=== PATIENT | male | born 1960 | race Caucasian/White ===

== ENCOUNTER 2019-06-06 04:14 | Inpatient (IN) | payer BC ==
[2019-06-06] MEDS ORDERED: Sodium Chloride 0.9% 1,000 ML IV ONE (04:36)
[2019-06-06] MEDS ORDERED: Sodium Chloride 0.9% 2.5 ML Syringe FLUSH PRN ×2 (04:36→07:40)
[2019-06-06] MEDS ORDERED: Sodium Chloride 0.9% 10 ML Syringe FLUSH PRN ×2 (04:36→07:40)
[2019-06-06] MEDS ORDERED: Morphine 2 MG/ML Syringe IVPUSH ONE (04:36)
[2019-06-06] MEDS ORDERED: Pantoprazole 80 MG in Sodium Chloride 0.9% 20 ML IVPUSH ONE (04:36)
[2019-06-06] MEDS ORDERED: Ondansetron 4 MG/2 ML SDV IVPUSH ONE (04:37)
--- NOTE | 2019-06-06 04:40 | EDM.PDOC ---
ED HPI GENERAL MEDICAL PROBLEM - General Chief Complaint: Abdominal Pain Stated Complaint: ABD PAIN Time Seen by Provider: 06/06/19 04:31 - History of Present Illness INITIAL COMMENTS - FREE TEXT/NARRATIVE: HISTORY AND PHYSICAL: History of present illness: The patient is a 58-year-old male with no cardiac or GI history who presents with onset of epigastric and upper abdominal pain at approximately 11 PM, almost 6 hours ago. He says that he has had episodes of the same pain in the past but never this severe and he has not sought treatment from a provider with it. He says that he intermittently uses meds for heartburn but he does not regularly have heartburn and he has no history of food intolerance. He has had no fever chills upper respiratory symptoms shortness of breath or chest pain and he has not had black or bloody stools and in fact had a bowel movement several hours ago that was normal in character and color for him. He has no urinary symptoms or flank pain. He says the pain originates in his epigastrium and then travels to either side and then also goes to his back. He describes it as a burning pain and he did try a few [id number] antacids a few hours ago and it did not help so he came here for treatment. He says he is not lightheaded or dizzy and has no lower abdominal pain. Review of systems: As per history of present illness and below otherwise all systems reviewed and negative. Past medical history: As per history of present illness and as reviewed below otherwise noncontributory. Surgical history: As per history of present illness and as reviewed below otherwise noncontributory. Social history: No reported history of drug or alcohol abuse. Family history: As per history of present illness and as reviewed below otherwise noncontributory. Physical exam: General: Well-developed well-nourished man who is nontoxic and vital signs are noted by me. He looks uncomfortable in the room HEENT: Atraumatic, normocephalic, pupils reactive, negative for conjunctival pallor or scleral icterus, mucous membranes moist, throat clear, neck supple, nontender, trachea midline. Lungs: Clear to auscultation, breath sounds equal bilaterally, chest nontender. Heart: S1S2, regular, negative for clicks, rubs, or JVD. Abdomen: Soft, nondistended, typically tender in the epigastrium and slightly to the right in the right upper quadrant and minimally in the left upper quadrant with some voluntary guarding but no involuntary guarding or rebound and there is no lower abdominal tenderness. Bowel sounds are hypoactive and there is no tympany on percussion.. Negative for masses or hepatosplenomegaly. Negative for costovertebral tenderness. Pelvis: Stable nontender. Genitourinary: Deferred. Rectal: Deferred. Extremities: Atraumatic, no edema. Neurovascular unremarkable. Neuro: Awake, alert, oriented. Cranial nerves II through XII unremarkable. Cerebellum unremarkable. Motor and sensory unremarkable throughout. Exam nonfocal. Diagnostics: EKG CBC CMP amylase lipase lactic acid CT scan of the abdomen pelvis Therapeutics: IV fluids Zofran morphine Protonix Dilaudid Zosyn 0611: Was discussed with Dr. Veliz and she is aware of the CT scan findings and the elevated WBC count. She would like me to keep the patient n.p.o. and give a dose of Zosyn and admit the patient to the floor and she will see the patient and evaluate him further for further care plan. The patient is aware of his CT scan findings and the need for admission and is agreeable Impression: Acute cholecystitis Definitive disposition and diagnosis as appropriate pending reevaluation and review of above. bilateral upper quadrant Pain Score (Numeric/FACES): 10 - Related Data Allergies Allergy/AdvReac Type Severity Reaction Status Date / Time No Known Allergies Allergy Verified 06/06/19 04:23 Home Meds: Home Meds . [No Known Home Meds] 06/06/19 [History] Past Medical History - Past Health History Medical/Surgical History: Denies Medical/Surgical History Cardiovascular History: Reports: None Respiratory History: Reports: None Gastrointestinal History: Reports: None Genitourinary History: Reports: None Musculoskeletal History: Reports: None Neurological History: Reports: None Psychiatric History: Reports: None Endocrine/Metabolic History: Reports: None Hematologic History: Reports: None Oncologic (Cancer) History: Reports: None Dermatologic History: Reports: None - Infectious Disease History Infectious Disease History: Reports: Chicken Pox Social & Family History - Family History Family Medical History: Noncontributory - Tobacco Use Smoking Status *Q: Never Smoker - Recreational Drug Use Recreational Drug Use: No ED ROS GENERAL - Review of Systems Review Of Systems: Comprehensive ROS is negative, except as noted in HPI. ED EXAM, GENERAL - Physical Exam Exam: See Below (See dictation) Course - Vital Signs Last Recorded V/S: Last Vital Signs Temp 35.9 C 06/06/19 04:24 Pulse 67 06/06/19 05:59 Resp 18 06/06/19 05:59 BP 165/102 H 06/06/19 05:59 Pulse Ox 99 06/06/19 05:59 - Orders/Labs/Meds Orders: Active Orders 24 hr Category Date Time Status Patient Status [ADT] Stat ADT 06/06/19 06:16 Ordered EKG Documentation Completion [RC] STAT Care 06/06/19 04:35 Active UA W/MICROSCOPIC [URIN] Stat Lab 06/06/19 05:59 Ordered Lactated Ringers @ 150 MLS/HR(1,000ml) Med 06/06/19 06:30 Ordered Lactated Ringers [Ringers, Lactated] 1,000 ml IV ASDIRECTED Piperacillin/Tazobactam [Piperacil-Tazobact] 4.5 gm Med 06/06/19 06:16 Ordered Sodium Chloride 0.9% [Normal Saline] 100 ml IV ONETIME Sodium Chloride 0.9% [Saline Flush] Med 06/06/19 04:36 Active 10 ml FLUSH ASDIRECTED PRN Sodium Chloride 0.9% [Saline Flush] Med 06/06/19 04:36 Active 2.5 ml FLUSH ASDIRECTED PRN Saline Lock Insert [OM.PC] Stat Oth 06/06/19 04:35 Ordered Medication Orders Sodium Chloride (Saline Flush) 10 ml FLUSH ASDIRECTED PRN PRN Reason: Keep Vein Open Sodium Chloride (Saline Flush) 2.5 ml FLUSH ASDIRECTED PRN PRN Reason: Keep Vein Open Labs: Laboratory Tests 06/06/19 06/06/19 06/06/19 Range/Units 04:30 04:30 04:30 WBC 14.85 H (4.0-11.0) K/uL RBC 5.23 (4.50-5.90) M/uL Hgb 15.2 (13.0-17.0) g/dL Hct 45.1 (38.0-50.0) % MCV 86.2 (80.0-98.0) fL MCH 29.1 (27.0-32.0) pg MCHC 33.7 (31.0-37.0) g/dL RDW Std Deviation 42.2 (28.0-62.0) fl RDW Coeff of Abhishek 14 (11.0-15.0) % Plt Count 343 (150-400) K/uL MPV 9.80 (7.40-12.00) fL Neut % (Auto) 81.3 H (48.0-80.0) % Lymph % (Auto) 7.7 L (16.0-40.0) % [place] % (Auto) 8.7 (0.0-15.0) % Eos % (Auto) 2.0 (0.0-7.0) % Baso % (Auto) 0.3 (0.0-1.5) % Neut # (Auto) 12.1 H (1.4-5.7) K/uL Lymph # (Auto) 1.1 (0.6-2.4) K/uL [place] # (Auto) 1.3 H (0.0-0.8) K/uL Eos # (Auto) 0.3 (0.0-0.7) K/uL Baso # (Auto) 0.0 (0.0-0.1) K/uL Nucleated RBC % 0.0 /100WBC Nucleated RBCs # 0 K/uL Lactate 1.1 (0.20-2.00) mmol/L Sodium 137 (136-148) mmol/L Potassium 3.6 (3.5-5.1) mmol/L Chloride 100 (98-107) mmol/L Carbon Dioxide 28.6 (21.0-32.0) mmol/L BUN 10 (7.0-18.0) mg/dL Creatinine 0.9 (0.8-1.3) mg/dL Est Cr Clr Drug Dosing 102.75 mL/min Estimated GFR (MDRD) > 60.0 ml/min Glucose 120 H (74-106) mg/dL Calcium 9.4 (8.5-10.1) mg/dL Total Bilirubin 0.6 (0.2-1.0) mg/dL AST 21 (15-37) IU/L ALT 34 (14-63) IU/L Alkaline Phosphatase 124 H (46-116) U/L Total Protein 7.5 (6.4-8.2) g/dL Albumin 3.8 (3.4-5.0) g/dL Globulin 3.7 (2.6-4.0) g/dL Albumin/Globulin Ratio 1.0 (0.9-1.6) Amylase 44 (25-115) U/L Lipase 175 (73-393) U/L Meds: Medications Generic Name Dose Route Start Last Admin Trade Name Freq PRN Reason Stop Dose Admin Sodium Chloride 10 ml 06/06/19 04:36 Saline Flush FLUSH ASDIRECTED PRN Keep Vein Open Sodium Chloride 2.5 ml 06/06/19 04:36 Saline Flush FLUSH ASDIRECTED PRN Keep Vein Open Discontinued Medications Generic Name Dose Route Start Last Admin Trade Name Freq PRN Reason Stop Dose Admin Hydromorphone HCl 1 mg 06/06/19 06:09 06/06/19 06:16 Dilaudid IVPUSH 06/06/19 06:10 1 mg ONETIME ONE Administration Pantoprazole Sodium 80 mg/ 20 mls @ 420 mls/hr 06/06/19 04:36 06/06/19 04:52 Sodium Chloride IVPUSH 06/06/19 04:38 420 mls/hr ONETIME ONE Administration Sodium Chloride 1,000 mls @ 999 mls/hr 06/06/19 04:36 06/06/19 04:45 Normal Saline IV 06/06/19 05:36 999 mls/hr STAT ONE Administration Iopamidol 100 ml 06/06/19 05:32 06/06/19 05:33 Isovue Multipack-370 (76%) IVPUSH 06/06/19 05:33 100 ml ONETIME ONE Administration Morphine Sulfate 4 mg 06/06/19 04:36 06/06/19 04:51 Morphine IVPUSH 06/06/19 04:37 4 mg ONETIME ONE Administration Ondansetron HCl 4 mg 06/06/19 04:37 06/06/19 04:52 Zofran IVPUSH 06/06/19 04:38 4 mg ONETIME ONE Administration Departure - Departure Time of Disposition: 06:18 Disposition: Refer to Observation Condition: Good Clinical Impression: Cholecystitis - Discharge Information Referrals: PCP,None [Primary Care Provider] - Forms: ED Department Discharge Sepsis Event Note - Evaluation Sepsis Screening Result: No Definite Risk - Focused Exam Vital Signs: Vital Signs Temp Pulse Resp BP Pulse Ox 06/06/19 05:59 67 18 165/102 H 99 06/06/19 04:24 35.9 C 83 18 149/104 H 96 Date Exam was Performed: 06/06/19 Time Exam was Performed: 06:17 - My Orders Last 24 Hours: My Active Orders 06/06/19 04:35 EKG Documentation Completion [RC] STAT Saline Lock Insert [OM.PC] Stat 06/06/19 04:36 Sodium Chloride 0.9% [Saline Flush] 10 ml FLUSH ASDIRECTED PRN Sodium Chloride 0.9% [Saline Flush] 2.5 ml FLUSH ASDIRECTED PRN 06/06/19 05:59 UA W/MICROSCOPIC [URIN] Stat 06/06/19 06:16 Patient Status [ADT] Stat Piperacillin/Tazobactam [Piperacil-Tazobact] 4.5 gm Sodium Chloride 0.9% [ Normal Saline] 100 ml IV ONETIME 06/06/19 06:30 Lactated Ringers @ 150 MLS/HR(1,000ml) Lactated Ringers [Ringers, Lactated] 1, 000 ml IV ASDIRECTED - Assessment/Plan Last 24 Hours: My Active Orders 06/06/19 04:35 EKG Documentation Completion [RC] STAT Saline Lock Insert [OM.PC] Stat 06/06/19 04:36 Sodium Chloride 0.9% [Saline Flush] 10 ml FLUSH ASDIRECTED PRN Sodium Chloride 0.9% [Saline Flush] 2.5 ml FLUSH ASDIRECTED PRN 06/06/19 05:59 UA W/MICROSCOPIC [URIN] Stat 06/06/19 06:16 Patient Status [ADT] Stat Piperacillin/Tazobactam [Piperacil-Tazobact] 4.5 gm Sodium Chloride 0.9% [ Normal Saline] 100 ml IV ONETIME 06/06/19 06:30 Lactated Ringers @ 150 MLS/HR(1,000ml) Lactated Ringers [Ringers, Lactated] 1, 000 ml IV ASDIRECTED
[2019-06-06 05:12] LABS: BLOOD UREA NITROGEN,BUN 10 mg/dL (7.0-18.0); CARBON DIOXIDE,CO2 28.6 mmol/L (21.0-32.0); CHLORIDE,CL 100 mmol/L (98-107); GLUCOSE RANDOM 120 mg/dL (74-106); LIPASE 175 U/L (73-393); POTASSIUM,K 3.6 mmol/L (3.5-5.1); SODIUM,NA 137 mmol/L (136-148)
[2019-06-06] MEDS ORDERED: Iopamidol 755 MG/ML 200 ML Multipack Bottle IVPUSH ONE (05:32)
[2019-06-06] MEDS ORDERED: HYDROmorphone 1 MG/ML Syringe IVPUSH ONE (06:09)
--- NOTE | 2019-06-06 06:09 | CT ---
INDICATION: Abdominal pain. TECHNIQUE: CT abdomen and pelvis acquired with 100 cc Isovue 370 IV contrast. Coronal and sagittal reconstructions. COMPARISON: None. FINDINGS: The gallbladder is filled with hyperdense material likely representing sludge, as well as a few stones. There is inflammatory fat stranding and fluid about the gallbladder, worrisome for acute cholecystitis. The liver, spleen, pancreas, and adrenal glands are negative. Small low-attenuation lesions in the right kidney are too small to characterize but most likely represent benign cysts. Symmetric nephrograms. No hydronephrosis. No obstructing urinary calculi. The bladder and prostate are unremarkable. Negative appendix. No intraperitoneal free air. Aortic vascular calcifications. Hepatic and portal veins are patent. No lymphadenopathy. Degenerative changes of the spine. Retrolisthesis of L5 on S1. Mild left basilar atelectasis. The lung bases are otherwise clear. IMPRESSION: Findings suspicious for acute cholecystitis. This could be confirmed with right upper quadrant ultrasound. Please note that all CT scans at this facility use dose modulation, iterative reconstruction, and/or weight-based dosing when appropriate to reduce radiation dose to as low as reasonably achievable. Dictated by Fide Casillas MD @ Jun 06 2019 6:00AM Signed by Dr. Fide Casillas @ Jun 06 2019 6:07AM
[2019-06-06] MEDS ORDERED: Piperacillin/Tazobactam 4.5 GM in Sodium Chloride 0.9% 100 ML IV ONE (06:16)
[2019-06-06] MEDS: Lactated Ringers 1,000 ML IV SCH ×5 (06:42→23:45)
[2019-06-06] MEDS ORDERED: Ondansetron 4 MG/2 ML SDV IVPUSH PRN ×2 (07:40→11:25)
[2019-06-06] MEDS ORDERED: diphenhydrAMINE 50 MG/ML SDV IVPUSH PRN ×2 (07:40→11:25)
[2019-06-06] MEDS ORDERED: Promethazine 25 MG/ML SDV IM PRN (07:40)
[2019-06-06] MEDS ORDERED: Acetaminophen/oxyCODONE 325-5 MG Tab PO PRN (07:40)
[2019-06-06] MEDS ORDERED: Sodium Chloride 0.9% 10 ML SDV IV PRN (07:40)
[2019-06-06] MEDS: HYDROmorphone 1 MG/ML Syringe IVPUSH PRN ×2 (08:18→09:34)
[2019-06-06] MEDS: Omeprazole 20 MG Cap.CR PO SCH (08:20)
--- NOTE | 2019-06-06 08:58 | PCM.HP.2 ---
H&P History of Present Illness - General Date of Service: 06/06/19 Admit Problem/Dx: Admission Diagnosis/Problem Admission Diagnosis/Problem Acute cholecystitis Source of Information: Patient History Limitations: Reports: No Limitations - History of Present Illness Initial Comments - Free Text/Narative: Patient is a 58-year-old male who presents with 12 hours of right upper quadrant abdominal pain. He states that he has had several episodes of similar pain in the past but it is never been this severe. He felt nauseated but did not have vomiting. The pain did not subside so he presented to the emergency room. He has intermittent heartburn and so he took some antacids but this did not relieve his pain. He had a colonoscopy last year and states that he had a couple polyps removed but is been doing well otherwise. He does not have a primary care physician. He is hypertensive on arrival to the emergency room. He has a white count of 14,000 with a left shift. His alkaline phosphatase is elevated but the remainder of his liver function tests and bilirubin are normal. He was given IV pain meds with little to no relief in the emergency room. CT scan revealed a thickened gallbladder wall with pericholecystic fluid and sludge consistent with acute cholecystitis. Right upper quadrant ultrasound revealed thickened gallbladder wall, amparo-cholecystic fluid and multiple gallstones within the gallbladder. bilateral upper quadrant Pain Score (Numeric/FACES): 10 - Related Data Allergies/Adverse Reactions: Allergies Allergy/AdvReac Type Severity Reaction Status Date / Time No Known Allergies Allergy Verified 06/06/19 06:54 Home Medications: Home Meds . [No Known Home Meds] 06/06/19 [History] Past Medical History - Past Health History Medical/Surgical History: Denies Medical/Surgical History Cardiovascular History: Reports: Hypertension Respiratory History: Reports: None Gastrointestinal History: Reports: None Genitourinary History: Reports: None Musculoskeletal History: Reports: None Neurological History: Reports: None Psychiatric History: Reports: None Endocrine/Metabolic History: Reports: None Hematologic History: Reports: None Oncologic (Cancer) History: Reports: None Dermatologic History: Reports: None - Infectious Disease History Infectious Disease History: Reports: Chicken Pox Social & Family History - Family History Family Medical History: Noncontributory - Tobacco Use Smoking Status *Q: Never Smoker Second Hand Smoke Exposure: No - Caffeine Use Caffeine Use: Reports: Soda - Recreational Drug Use Recreational Drug Use: No H&P Review of Systems - Review of Systems: Review Of Systems: Comprehensive ROS is negative, except as noted in HPI. General: Reports: No Symptoms HEENT: Reports: No Symptoms Pulmonary: Reports: No Symptoms Cardiovascular: Reports: No Symptoms Gastrointestinal: Reports: Abdominal Pain, Decreased Appetite, Nausea Musculoskeletal: Reports: No Symptoms Skin: Reports: No Symptoms Psychiatric: Reports: No Symptoms Exam - Exam Exam: See Below - Vital Signs Vital Signs: Last Vital Signs Temp 36.4 C 06/06/19 06:59 Pulse 59 L 06/06/19 06:59 Resp 18 06/06/19 06:59 BP 157/87 H 06/06/19 06:59 Pulse Ox 100 06/06/19 06:59 Weight: 89.8 kg - Exam General: Alert, Oriented HEENT: Conjunctiva Clear, Mucosa Moist & [place], Posterior Pharynx Clear Neck: Supple, Trachea Midline Lungs: Clear to Auscultation, Normal Respiratory Effort Cardiovascular: Regular Rate, Regular Rhythm GI/Abdominal Exam: Soft, Other (Positive high's sign. Tender mass in RUQ which may be patient's gallbladder. ) - Patient Data Lab Results Last 24 hrs: Laboratory Results - last 24 hr 06/06/19 06/06/19 06/06/19 Range/Units 04:30 04:30 04:30 WBC 14.85 H (4.0-11.0) K/uL RBC 5.23 (4.50-5.90) M/uL Hgb 15.2 (13.0-17.0) g/dL Hct 45.1 (38.0-50.0) % MCV 86.2 (80.0-98.0) fL MCH 29.1 (27.0-32.0) pg MCHC 33.7 (31.0-37.0) g/dL RDW Std Deviation 42.2 (28.0-62.0) fl RDW Coeff of Abhishek 14 (11.0-15.0) % Plt Count 343 (150-400) K/uL MPV 9.80 (7.40-12.00) fL Neut % (Auto) 81.3 H (48.0-80.0) % Lymph % (Auto) 7.7 L (16.0-40.0) % [place] % (Auto) 8.7 (0.0-15.0) % Eos % (Auto) 2.0 (0.0-7.0) % Baso % (Auto) 0.3 (0.0-1.5) % Neut # (Auto) 12.1 H (1.4-5.7) K/uL Lymph # (Auto) 1.1 (0.6-2.4) K/uL [place] # (Auto) 1.3 H (0.0-0.8) K/uL Eos # (Auto) 0.3 (0.0-0.7) K/uL Baso # (Auto) 0.0 (0.0-0.1) K/uL Nucleated RBC % 0.0 /100WBC Nucleated RBCs # 0 K/uL Lactate 1.1 (0.20-2.00) mmol/L Sodium 137 (136-148) mmol/L Potassium 3.6 (3.5-5.1) mmol/L Chloride 100 (98-107) mmol/L Carbon Dioxide 28.6 (21.0-32.0) mmol/L BUN 10 (7.0-18.0) mg/dL Creatinine 0.9 (0.8-1.3) mg/dL Est Cr Clr Drug Dosing 102.75 mL/min Estimated GFR (MDRD) > 60.0 ml/min Glucose 120 H (74-106) mg/dL Calcium 9.4 (8.5-10.1) mg/dL Total Bilirubin 0.6 (0.2-1.0) mg/dL AST 21 (15-37) IU/L ALT 34 (14-63) IU/L Alkaline Phosphatase 124 H (46-116) U/L Total Protein 7.5 (6.4-8.2) g/dL Albumin 3.8 (3.4-5.0) g/dL Globulin 3.7 (2.6-4.0) g/dL Albumin/Globulin Ratio 1.0 (0.9-1.6) Amylase 44 (25-115) U/L Lipase 175 (73-393) U/L Result Diagrams: 06/06/19 04:30 06/06/19 04:30 Sepsis Event Note - Evaluation Sepsis Screening Result: No Definite Risk Possible Source of Sepsis: GI Tract/Intra-abdominal - Focused Exam Vital Signs: Vital Signs Temp Pulse Resp BP Pulse Ox 06/06/19 06:59 36.4 C 59 L 18 157/87 H 100 06/06/19 06:24 36.1 C 65 18 150/72 H 96 06/06/19 05:59 67 18 165/102 H 99 06/06/19 04:24 35.9 C 83 18 149/104 H 96 Capillary Refill, Detail: Less than/Equal to (</=) 2 Seconds Pulse Description: 2+ Normal Date Exam was Performed: 06/06/19 Time Exam was Performed: 10:03 - Problem List (1) Cholecystitis SNOMED Code(s): 42409807 ICD Code: K81.9 - CHOLECYSTITIS, UNSPECIFIED Status: Acute Current Visit : Yes Problem List Initiated/Reviewed/Updated: Yes Orders Last 24hrs: Active Orders 24 hr Category Date Time Status Patient Status [ADT] Routine ADT 06/06/19 07:40 Active Intake and Output [RC] QSHIFT Care 06/06/19 07:40 Active Oxygen Therapy [RC] PRN Care 06/06/19 07:40 Active RT Incentive Spirometry [RC] Q1HWA Care 06/06/19 07:40 Active Up ad Yaima [RC] ASDIRECTED Care 06/06/19 07:40 Active Vital Signs [RC] PER UNIT ROUTINE Care 06/06/19 07:40 Active Clear Liquid Diet [DIET] Diet 06/06/19 Breakfast Active Abdomen Ltd [US] Urgent Exams 06/06/19 07:43 Taken COMPREHENSIVE METABOLIC PN,CMP [CHEM] AM Lab 06/07/19 05:11 Ordered Acetaminophen/oxyCODONE [Percocet 325-5 MG] Med 06/06/19 07:40 Active 2 tab PO Q4H PRN HYDROmorphone [Dilaudid] Med 06/06/19 07:40 Active 0.5 mg IVPUSH Q1H PRN Lactated Ringers [Ringers, Lactated] 1,000 ml Med 06/06/19 06:30 Active IV ASDIRECTED Lactated Ringers [Ringers, Lactated] 1,000 ml Med 06/06/19 07:45 Active IV Q8H Omeprazole Med 06/06/19 09:00 Active 20 mg PO ACBREAKFAST Ondansetron [Zofran] Med 06/06/19 07:40 Active 4 mg IVPUSH Q6H PRN Piperacillin/Tazobactam [Piperacil-Tazobact] 3.375 gm Med 06/06/19 12:00 Active Sodium Chloride 0.9% [Normal Saline] 50 ml IV Q6H Promethazine [Phenergan] Med 06/06/19 07:40 Active 25 mg IM Q6H PRN Sodium Chloride 0.9% [Normal Saline] Med 06/06/19 07:40 Active 10 ml IV ASDIRECTED PRN Sodium Chloride 0.9% [Saline Flush] Med 06/06/19 04:36 Active 10 ml FLUSH ASDIRECTED PRN Sodium Chloride 0.9% [Saline Flush] Med 06/06/19 07:40 Active 10 ml FLUSH ASDIRECTED PRN Sodium Chloride 0.9% [Saline Flush] Med 06/06/19 04:36 Active 2.5 ml FLUSH ASDIRECTED PRN Sodium Chloride 0.9% [Saline Flush] Med 06/06/19 07:40 Active 2.5 ml FLUSH ASDIRECTED PRN diphenhydrAMINE [Benadryl] Med 06/06/19 07:40 Active 25 mg IVPUSH Q4H PRN Peripheral IV Insertion Adult [OM.PC] Urgent Oth 06/06/19 07:40 Ordered Saline Lock Insert [OM.PC] Stat Oth 06/06/19 04:35 Ordered Resuscitation Status Routine Resus Stat 06/06/19 07:40 Ordered Medication Orders Diphenhydramine HCl (Benadryl) 25 mg IVPUSH Q4H PRN PRN Reason: Itching Hydromorphone HCl (Dilaudid) 0.5 mg IVPUSH Q1H PRN PRN Reason: Pain (severe 7-10) Last Admin: 06/06/19 08:18 Dose: 0.5 mg Lactated Ringer's (Ringers, Lactated) 1,000 mls @ 150 mls/hr IV ASDIRECTED MARIA ELENA Last Admin: 06/06/19 06:42 Dose: 150 mls/hr Lactated Ringer's (Ringers, Lactated) 1,000 mls @ 125 mls/hr IV Q8H MARIA ELENA Last Admin: 06/06/19 08:17 Dose: 125 mls/hr Piperacillin Sod/Tazobactam (Sod 3.375 gm/ Sodium Chloride) 50 mls @ 100 mls/ hr IV Q6H MARIA ELENA Omeprazole (Omeprazole) 20 mg PO ACBREAKFAST MARIA ELENA Last Admin: 06/06/19 08:20 Dose: 20 mg Ondansetron HCl (Zofran) 4 mg IVPUSH Q6H PRN PRN Reason: Nausea/Vomiting Oxycodone/Acetaminophen (Percocet 325-5 Mg) 2 tab PO Q4H PRN PRN Reason: Pain (moderate 4-6) Promethazine HCl (Phenergan) 25 mg IM Q6H PRN PRN Reason: Nausea Sodium Chloride (Saline Flush) 10 ml FLUSH ASDIRECTED PRN PRN Reason: Keep Vein Open Sodium Chloride (Saline Flush) 2.5 ml FLUSH ASDIRECTED PRN PRN Reason: Keep Vein Open Sodium Chloride (Saline Flush) 10 ml FLUSH ASDIRECTED PRN PRN Reason: Keep Vein Open Sodium Chloride (Saline Flush) 2.5 ml FLUSH ASDIRECTED PRN PRN Reason: Keep Vein Open Sodium Chloride (Normal Saline) 10 ml IV ASDIRECTED PRN PRN Reason: IV Use Assessment/Plan Comment:: The patient has acute cholecystitis.The patient and I discussed the pathophysiology of biliary disease. For acute cholelithiasis, treatment is removal of the gallbladder. The patient and I discussed the laparoscopic and open approach to cholecystectomy. Should I be unable to remove the gallbladder safely via the laparoscopic approach I will convert to open. We discussed the expected perioperative course as well as the risks including bleeding infection or damage to surrounding structures. Patient verbalized understanding and wishes to proceed. For today, I will give him IV fluids, IV antibiotics (zosyn), and try and control his pain with oral Percocet and IV pain meds. He can have a clear liquid diet today but will be nothing by mouth after midnight.
--- NOTE | 2019-06-06 08:59 | US ---
Limited abdominal ultrasound: Multiple real-time images of the upper right abdomen were obtained. Comparison: Previous CT abdomen and pelvis study performed earlier on the same day (5:30 AM) Findings: Gallbladder wall thickening is noted. Gallstones are seen within the gallbladder. No biliary duct dilatation is seen. Pancreas is incompletely seen. Visualized portions of the pancreas appear within normal limits. Right kidney shows no hydronephrosis or mass. Right kidney length is 10.8 cm. Visualised portions of the liver appear within normal limits. Impression: 1. Gallbladder wall thickening with gallstones. 2. No biliary duct dilatation is seen. 3. No additional abnormality is seen on right upper quadrant abdominal ultrasound exam. Diagnostic code #3 This report was dictated in [place] Standard Time
[2019-06-06] MEDS ORDERED: diphenhydrAMINE 25 MG Cap PO PRN (11:25)
[2019-06-06] MEDS ORDERED: Naloxone 0.4 MG/ML Syringe IVPUSH PRN (11:25)
[2019-06-06] MEDS: Ketorolac 30 MG/ML SDV IVPUSH PRN (11:46)
[2019-06-06] MEDS: Piperacillin/Tazobactam 3.375 GM in Sodium Chloride 0.9% 50 ML IV SCH ×3 (11:52→23:42)
[2019-06-06] MEDS: Morphine PF 30 MG/30 ML PCA Vial IV SCH (12:37)
--- NOTE | 2019-06-06 15:04 | PCM.SN ---
- Free Text/Narrative Note: Patient is a 58-year-old male with acute cholecystitis. This was confirmed on ultrasound. I placed him on by mouth Percocet and IV Dilaudid as needed. As of 11:00 his pain was a tentative 10 and the patient started vomiting. I went to the bedside and found the patient in acute distress but with normal vital signs. I ordered 30 mg of IV Toradol and a morphine TOBACCO GRADER. After administration of the Toradol the patient felt much better. With IV morphine TOBACCO GRADER his pain is manageable. We'll proceed with cholecystectomy tomorrow morning.
[2019-06-06] MEDS: Ketorolac 30 MG/ML SDV IVPUSH SCH ×2 (18:22→23:40)
[2019-06-07 06:37] LABS: BLOOD UREA NITROGEN,BUN 11 mg/dL (7.0-18.0); CARBON DIOXIDE,CO2 29.2 mmol/L (21.0-32.0); CHLORIDE,CL 100 mmol/L (98-107); GLUCOSE RANDOM 99 mg/dL (74-106); POTASSIUM,K 4.5 mmol/L (3.5-5.1); SODIUM,NA 134 mmol/L (136-148)
[2019-06-07] MEDS: Ketorolac 30 MG/ML SDV IVPUSH SCH ×4 (06:52→23:30)
[2019-06-07] MEDS: Omeprazole 20 MG Cap.CR PO SCH (06:52)
[2019-06-07] MEDS: Piperacillin/Tazobactam 3.375 GM in Sodium Chloride 0.9% 50 ML IV SCH ×4 (06:52→23:38)
[2019-06-07] MEDS ORDERED: Scopolamine 1.5 MG Transdermal Patch TRDERM PRN (07:02)
--- NOTE | 2019-06-07 07:04 | PCM.PREANE ---
Preanesthetic Assessment - Anesthesia/Transfusion/Family Hx Anesthesia History: Prior Anesthesia Without Reaction Family History of Anesthesia Reaction: No Transfusion History: No Prior Transfusion(s) Intubation History: Unknown - Review of Systems General: No Symptoms Pulmonary: No Symptoms Cardiovascular: No Symptoms Gastrointestinal: Abdominal Pain Neurological: No Symptoms Other: Reports: None - Physical Assessment Vital Signs: Last Vital Signs Temp 37.2 C 06/07/19 04:24 Pulse 96 06/07/19 04:24 Resp 16 06/07/19 04:24 BP 111/65 06/07/19 04:24 Pulse Ox 95 06/07/19 04:24 Height: 6 ft 2 in Weight: 89.8 kg ASA Class: 2 Mental Status: Alert & Oriented x3 Airway Class: Mallampati = 2 Dentition: Reports: Normal Dentition Thyro-Mental Finger Breadths: 3 Mouth Opening Finger Breadths: 2 ROM/Head Extension: Full Lungs: Clear to Auscultation, Normal Respiratory Effort Cardiovascular: Regular Rate, Regular Rhythm - Lab Values: Laboratory Last Values WBC 20.00 K/uL (4.0-11.0) H 06/07/19 05:54 RBC 5.08 M/uL (4.50-5.90) 06/07/19 05:54 Hgb 14.7 g/dL (13.0-17.0) 06/07/19 05:54 Hct 43.1 % (38.0-50.0) 06/07/19 05:54 MCV 84.8 fL (80.0-98.0) 06/07/19 05:54 MCH 28.9 pg (27.0-32.0) 06/07/19 05:54 MCHC 34.1 g/dL (31.0-37.0) 06/07/19 05:54 RDW Std Deviation 41.8 fl (28.0-62.0) 06/07/19 05:54 RDW Coeff of Abhishek 14 % (11.0-15.0) 06/07/19 05:54 Plt Count 281 K/uL (150-400) 06/07/19 05:54 MPV 9.60 fL (7.40-12.00) 06/07/19 05:54 Neut % (Auto) 81.3 % (48.0-80.0) H 06/06/19 04:30 Lymph % (Auto) 7.7 % (16.0-40.0) L 06/06/19 04:30 [place] % (Auto) 8.7 % (0.0-15.0) 06/06/19 04:30 Eos % (Auto) 2.0 % (0.0-7.0) 06/06/19 04:30 Baso % (Auto) 0.3 % (0.0-1.5) 06/06/19 04:30 Neut # (Auto) 12.1 K/uL (1.4-5.7) H 06/06/19 04:30 Lymph # (Auto) 1.1 K/uL (0.6-2.4) 06/06/19 04:30 [place] # (Auto) 1.3 K/uL (0.0-0.8) H 06/06/19 04:30 Eos # (Auto) 0.3 K/uL (0.0-0.7) 06/06/19 04:30 Baso # (Auto) 0.0 K/uL (0.0-0.1) 06/06/19 04:30 Add Manual Diff YES 06/07/19 05:54 Neutrophils % (Manual) 89 % (48.0-80.0) H 06/07/19 05:54 Lymphocytes % (Manual) 2 % (16.0-40.0) L 06/07/19 05:54 Monocytes % (Manual) 8 % (0.0-15.0) 06/07/19 05:54 Eosinophils % (Manual) 1 % (0.0-7.0) 06/07/19 05:54 Nucleated RBC % 0.0 /100WBC 06/06/19 04:30 Absolute Seg Neuts 17.8 (1.4-5.7) H 06/07/19 05:54 Lymphocytes # (Manual) 0.4 (0.6-2.4) L 06/07/19 05:54 Monocytes # (Manual) 1.6 (0.0-0.8) H 06/07/19 05:54 Eosinophils # (Manual) 0.2 (0.0-0.7) 06/07/19 05:54 Nucleated RBCs # 0 K/uL 06/06/19 04:30 Lactate 1.1 mmol/L (0.20-2.00) 06/06/19 04:30 Sodium 134 mmol/L (136-148) L 06/07/19 05:54 Potassium 4.5 mmol/L (3.5-5.1) 06/07/19 05:54 Chloride 100 mmol/L (98-107) 06/07/19 05:54 Carbon Dioxide 29.2 mmol/L (21.0-32.0) 06/07/19 05:54 BUN 11 mg/dL (7.0-18.0) 06/07/19 05:54 Creatinine 1.0 mg/dL (0.8-1.3) 06/07/19 05:54 Est Cr Clr Drug Dosing 92.48 mL/min 06/07/19 05:54 Estimated GFR (MDRD) > 60.0 ml/min 06/07/19 05:54 Glucose 99 mg/dL (74-106) 06/07/19 05:54 Calcium 8.8 mg/dL (8.5-10.1) 06/07/19 05:54 Total Bilirubin 2.3 mg/dL (0.2-1.0) H 06/07/19 05:54 AST 47 IU/L (15-37) H 06/07/19 05:54 ALT 62 IU/L (14-63) 06/07/19 05:54 Alkaline Phosphatase 96 U/L (46-116) 06/07/19 05:54 Total Protein 6.5 g/dL (6.4-8.2) 06/07/19 05:54 Albumin 2.9 g/dL (3.4-5.0) L 06/07/19 05:54 Globulin 3.6 g/dL (2.6-4.0) 06/07/19 05:54 Albumin/Globulin Ratio 0.8 (0.9-1.6) L 06/07/19 05:54 Amylase 44 U/L (25-115) 06/06/19 04:30 Lipase 175 U/L (73-393) 06/06/19 04:30 - Allergies Allergies/Adverse Reactions: Allergies Allergy/AdvReac Type Severity Reaction Status Date / Time No Known Allergies Allergy Verified 06/06/19 06:54 - Blood Blood Available: No - Anesthesia Plan Pre-Op Medication Ordered: None - Acknowledgements Anesthesia Type Planned: General Anesthesia Pt an Appropriate Candidate for the Planned Anesthesia: Yes Alternatives and Risks of Anesthesia Discussed w Pt/Guardian: Yes Pt/Guardian Understands and Agrees with Anesthesia Plan: Yes PreAnesthesia Questionnaire - Past Health History Medical/Surgical History: Denies Medical/Surgical History Cardiovascular History: Reports: Hypertension Respiratory History: Reports: None Gastrointestinal History: Reports: None Genitourinary History: Reports: None Musculoskeletal History: Reports: None Neurological History: Reports: None Psychiatric History: Reports: None Endocrine/Metabolic History: Reports: None Hematologic History: Reports: None Oncologic (Cancer) History: Reports: None Dermatologic History: Reports: None - Infectious Disease History Infectious Disease History: Reports: Chicken Pox - SUBSTANCE USE Smoking Status *Q: Never Smoker Second Hand Smoke Exposure: No Recreational Drug Use History: No - HOME MEDS Home Medications: Home Meds . [No Known Home Meds] 06/06/19 [History] - CURRENT (IN HOUSE) MEDS Current Meds: Current Medications Diphenhydramine HCl (Benadryl) 25 mg IVPUSH Q4H PRN PRN Reason: Itching Diphenhydramine HCl (Benadryl) 25 mg IVPUSH Q6H PRN PRN Reason: Itching Diphenhydramine HCl (Benadryl) 25 mg PO Q6H PRN PRN Reason: Itching Lactated Ringer's (Ringers, Lactated) 1,000 mls @ 150 mls/hr IV ASDIRECTED [facility] Last Infusion: 06/06/19 13:23 Dose: Infused Lactated Ringer's (Ringers, Lactated) 1,000 mls @ 125 mls/hr IV Q8H [facility] Last Admin: 06/06/19 23:45 Dose: 125 mls/hr Piperacillin Sod/Tazobactam (Sod 3.375 gm/ Sodium Chloride) 50 mls @ 100 mls/ hr IV Q6H [facility] Last Admin: 06/07/19 06:52 Dose: 100 mls/hr Ketorolac Tromethamine (Toradol) 30 mg IVPUSH Q6H PRN PRN Reason: Abdominal Pain Stop: 06/11/19 11:28 Last Admin: 06/06/19 11:46 Dose: 30 mg Ketorolac Tromethamine (Toradol) 30 mg IVPUSH Q6H [facility] Stop: 06/11/19 12:32 Last Admin: 06/07/19 06:52 Dose: 30 mg Morphine Sulfate (Morphine Software Packager 30 Mg In 30 Ml) 0 mg IV ASDIRECTED [facility]; Protocol Last Admin: 06/06/19 12:37 Dose: 30 mg Naloxone HCl (Narcan) 0.04 mg IVPUSH Q3M PRN PRN Reason: Respiratory Depression Omeprazole (Omeprazole) 20 mg PO ACBREAKFAST [facility] Last Admin: 06/07/19 06:52 Dose: 20 mg Ondansetron HCl (Zofran) 4 mg IVPUSH Q6H PRN PRN Reason: Nausea/Vomiting Last Admin: 06/06/19 09:36 Dose: 4 mg Ondansetron HCl (Zofran) 4 mg IVPUSH Q6H PRN PRN Reason: Nausea/Vomiting Promethazine HCl (Phenergan) 25 mg IM Q6H PRN PRN Reason: Nausea Sodium Chloride (Saline Flush) 10 ml FLUSH ASDIRECTED PRN PRN Reason: Keep Vein Open Sodium Chloride (Saline Flush) 2.5 ml FLUSH ASDIRECTED PRN PRN Reason: Keep Vein Open Sodium Chloride (Saline Flush) 10 ml FLUSH ASDIRECTED PRN PRN Reason: Keep Vein Open Sodium Chloride (Saline Flush) 2.5 ml FLUSH ASDIRECTED PRN PRN Reason: Keep Vein Open Sodium Chloride (Normal Saline) 10 ml IV ASDIRECTED PRN PRN Reason: IV Use Discontinued Medications Hydromorphone HCl (Dilaudid) 1 mg IVPUSH ONETIME ONE Stop: 06/06/19 06:10 Last Admin: 06/06/19 06:16 Dose: 1 mg Hydromorphone HCl (Dilaudid) 0.5 mg IVPUSH Q1H PRN PRN Reason: Pain (severe 7-10) Last Admin: 06/06/19 09:34 Dose: 0.5 mg Pantoprazole Sodium 80 mg/ (Sodium Chloride) 20 mls @ 420 mls/hr IVPUSH ONETIME ONE Stop: 06/06/19 04:38 Last Admin: 06/06/19 04:52 Dose: 420 mls/hr Sodium Chloride (Normal Saline) 1,000 mls @ 999 mls/hr IV STAT ONE Stop: 06/06/19 05:36 Last Admin: 06/06/19 04:45 Dose: 999 mls/hr Piperacillin Sod/Tazobactam (Sod 4.5 gm/ Sodium Chloride) 100 mls @ 100 mls/hr IV ONETIME ONE Stop: 06/06/19 07:15 Last Admin: 06/06/19 06:22 Dose: 100 mls/hr Iopamidol (Isovue Multipack-370 (76%)) 100 ml IVPUSH ONETIME ONE Stop: 06/06/19 05:33 Last Admin: 06/06/19 05:33 Dose: 100 ml Morphine Sulfate (Morphine) 4 mg IVPUSH ONETIME ONE Stop: 06/06/19 04:37 Last Admin: 06/06/19 04:51 Dose: 4 mg Ondansetron HCl (Zofran) 4 mg IVPUSH ONETIME ONE Stop: 06/06/19 04:38 Last Admin: 06/06/19 04:52 Dose: 4 mg Oxycodone/Acetaminophen (Percocet 325-5 Mg) 2 tab PO Q4H PRN PRN Reason: Pain (moderate 4-6) Last Admin: 06/06/19 10:41 Dose: 2 tab
[2019-06-07] MEDS: Morphine PF 30 MG/30 ML PCA Vial IV SCH ×2 (07:38→23:31)
[2019-06-07] MEDS: Lactated Ringers 1,000 ML IV SCH ×2 (07:42→16:38)
--- NOTE | 2019-06-07 08:17 | PCM.SURGPN ---
- General Info Date of Service: 06/07/19 Functional Status: Reports: Pain Controlled - Review of Systems General: Reports: Fever, Malaise HEENT: Reports: No Symptoms Pulmonary: Reports: No Symptoms Cardiovascular: Reports: No Symptoms Gastrointestinal: Reports: Abdominal Pain Genitourinary: Reports: No Symptoms Musculoskeletal: Reports: No Symptoms - Patient Data Vitals - Most Recent: Last Vital Signs Temp 37.2 C 06/07/19 04:24 Pulse 96 06/07/19 04:24 Resp 16 06/07/19 04:24 BP 111/65 06/07/19 04:24 Pulse Ox 95 06/07/19 04:24 Weight - Most Recent: 89.8 kg I&O - Last 24 Hours: Intake & Output 06/06/19 06/07/19 06/07/19 22:59 06:59 14:59 Intake Total 1100 1585 Output Total 1575 700 Balance -475 885 Lab Results Last 24 Hrs: Laboratory Results - last 24 hr 06/07/19 06/07/19 06/07/19 Range/Units 05:54 05:54 05:54 WBC 20.00 H (4.0-11.0) K/uL RBC 5.08 (4.50-5.90) M/uL Hgb 14.7 (13.0-17.0) g/dL Hct 43.1 (38.0-50.0) % MCV 84.8 (80.0-98.0) fL MCH 28.9 (27.0-32.0) pg MCHC 34.1 (31.0-37.0) g/dL RDW Std Deviation 41.8 (28.0-62.0) fl RDW Coeff of Abhishek 14 (11.0-15.0) % Plt Count 281 (150-400) K/uL MPV 9.60 (7.40-12.00) fL Add Manual Diff YES Neutrophils % (Manual) 89 H (48.0-80.0) % Lymphocytes % (Manual) 2 L (16.0-40.0) % Monocytes % (Manual) 8 (0.0-15.0) % Eosinophils % (Manual) 1 (0.0-7.0) % Absolute Seg Neuts 17.8 H (1.4-5.7) Lymphocytes # (Manual) 0.4 L (0.6-2.4) Monocytes # (Manual) 1.6 H (0.0-0.8) Eosinophils # (Manual) 0.2 (0.0-0.7) Lactate (0.20-2.00) mmol/L Sodium 134 L (136-148) mmol/L Potassium 4.5 (3.5-5.1) mmol/L Chloride 100 (98-107) mmol/L Carbon Dioxide 29.2 (21.0-32.0) mmol/L BUN 11 (7.0-18.0) mg/dL Creatinine 1.0 (0.8-1.3) mg/dL Est Cr Clr Drug Dosing 92.48 mL/min Estimated GFR (MDRD) > 60.0 ml/min Glucose 99 (74-106) mg/dL Calcium 8.8 (8.5-10.1) mg/dL Magnesium 1.7 L (1.8-2.4) mg/dL Total Bilirubin 2.3 H (0.2-1.0) mg/dL AST 47 H (15-37) IU/L ALT 62 (14-63) IU/L Alkaline Phosphatase 96 (46-116) U/L Total Protein 6.5 (6.4-8.2) g/dL Albumin 2.9 L (3.4-5.0) g/dL Globulin 3.6 (2.6-4.0) g/dL Albumin/Globulin Ratio 0.8 L (0.9-1.6) 06/07/19 Range/Units 07:15 WBC (4.0-11.0) K/uL RBC (4.50-5.90) M/uL Hgb (13.0-17.0) g/dL Hct (38.0-50.0) % MCV (80.0-98.0) fL MCH (27.0-32.0) pg MCHC (31.0-37.0) g/dL RDW Std Deviation (28.0-62.0) fl RDW Coeff of Abhishek (11.0-15.0) % Plt Count (150-400) K/uL MPV (7.40-12.00) fL Add Manual Diff Neutrophils % (Manual) (48.0-80.0) % Lymphocytes % (Manual) (16.0-40.0) % Monocytes % (Manual) (0.0-15.0) % Eosinophils % (Manual) (0.0-7.0) % Absolute Seg Neuts (1.4-5.7) Lymphocytes # (Manual) (0.6-2.4) Monocytes # (Manual) (0.0-0.8) Eosinophils # (Manual) (0.0-0.7) Lactate 0.9 (0.20-2.00) mmol/L Sodium (136-148) mmol/L Potassium (3.5-5.1) mmol/L Chloride (98-107) mmol/L Carbon Dioxide (21.0-32.0) mmol/L BUN (7.0-18.0) mg/dL Creatinine (0.8-1.3) mg/dL Est Cr Clr Drug Dosing mL/min Estimated GFR (MDRD) ml/min Glucose (74-106) mg/dL Calcium (8.5-10.1) mg/dL Magnesium (1.8-2.4) mg/dL Total Bilirubin (0.2-1.0) mg/dL AST (15-37) IU/L ALT (14-63) IU/L Alkaline Phosphatase (46-116) U/L Total Protein (6.4-8.2) g/dL Albumin (3.4-5.0) g/dL Globulin (2.6-4.0) g/dL Albumin/Globulin Ratio (0.9-1.6) Med Orders - Current: Current Medications Diphenhydramine HCl (Benadryl) 25 mg IVPUSH Q4H PRN PRN Reason: Itching Diphenhydramine HCl (Benadryl) 25 mg IVPUSH Q6H PRN PRN Reason: Itching Diphenhydramine HCl (Benadryl) 25 mg PO Q6H PRN PRN Reason: Itching Lactated Ringer's (Ringers, Lactated) 1,000 mls @ 150 mls/hr IV ASDIRECTED [facility] Last Infusion: 06/06/19 13:23 Dose: Infused Lactated Ringer's (Ringers, Lactated) 1,000 mls @ 125 mls/hr IV Q8H [facility] Last Admin: 06/07/19 07:42 Dose: 125 mls/hr Piperacillin Sod/Tazobactam (Sod 3.375 gm/ Sodium Chloride) 50 mls @ 100 mls/ hr IV Q6H [facility] Last Admin: 06/07/19 06:52 Dose: 100 mls/hr Ketorolac Tromethamine (Toradol) 30 mg IVPUSH Q6H PRN PRN Reason: Abdominal Pain Stop: 06/11/19 11:28 Last Admin: 06/06/19 11:46 Dose: 30 mg Ketorolac Tromethamine (Toradol) 30 mg IVPUSH Q6H [facility] Stop: 06/11/19 12:32 Last Admin: 06/07/19 06:52 Dose: 30 mg Morphine Sulfate (Morphine Cap Parts Cutter 30 Mg In 30 Ml) 0 mg IV ASDIRECTED [facility]; Protocol Last Admin: 06/07/19 07:38 Dose: 30 mg Naloxone HCl (Narcan) 0.04 mg IVPUSH Q3M PRN PRN Reason: Respiratory Depression Omeprazole (Omeprazole) 20 mg PO ACBREAKFAST [facility] Last Admin: 06/07/19 06:52 Dose: 20 mg Ondansetron HCl (Zofran) 4 mg IVPUSH Q6H PRN PRN Reason: Nausea/Vomiting Last Admin: 06/06/19 09:36 Dose: 4 mg Ondansetron HCl (Zofran) 4 mg IVPUSH Q6H PRN PRN Reason: Nausea/Vomiting Promethazine HCl (Phenergan) 25 mg IM Q6H PRN PRN Reason: Nausea Scopolamine (Transderm-Scop) 1.5 mg TRDERM Q72H PRN PRN Reason: Nausea Sodium Chloride (Saline Flush) 10 ml FLUSH ASDIRECTED PRN PRN Reason: Keep Vein Open Sodium Chloride (Saline Flush) 2.5 ml FLUSH ASDIRECTED PRN PRN Reason: Keep Vein Open Sodium Chloride (Saline Flush) 10 ml FLUSH ASDIRECTED PRN PRN Reason: Keep Vein Open Sodium Chloride (Saline Flush) 2.5 ml FLUSH ASDIRECTED PRN PRN Reason: Keep Vein Open Sodium Chloride (Normal Saline) 10 ml IV ASDIRECTED PRN PRN Reason: IV Use Discontinued Medications Hydromorphone HCl (Dilaudid) 1 mg IVPUSH ONETIME ONE Stop: 06/06/19 06:10 Last Admin: 06/06/19 06:16 Dose: 1 mg Hydromorphone HCl (Dilaudid) 0.5 mg IVPUSH Q1H PRN PRN Reason: Pain (severe 7-10) Last Admin: 06/06/19 09:34 Dose: 0.5 mg Pantoprazole Sodium 80 mg/ (Sodium Chloride) 20 mls @ 420 mls/hr IVPUSH ONETIME ONE Stop: 06/06/19 04:38 Last Admin: 06/06/19 04:52 Dose: 420 mls/hr Sodium Chloride (Normal Saline) 1,000 mls @ 999 mls/hr IV STAT ONE Stop: 06/06/19 05:36 Last Admin: 06/06/19 04:45 Dose: 999 mls/hr Piperacillin Sod/Tazobactam (Sod 4.5 gm/ Sodium Chloride) 100 mls @ 100 mls/hr IV ONETIME ONE Stop: 06/06/19 07:15 Last Admin: 06/06/19 06:22 Dose: 100 mls/hr Iopamidol (Isovue Multipack-370 (76%)) 100 ml IVPUSH ONETIME ONE Stop: 06/06/19 05:33 Last Admin: 06/06/19 05:33 Dose: 100 ml Morphine Sulfate (Morphine) 4 mg IVPUSH ONETIME ONE Stop: 06/06/19 04:37 Last Admin: 06/06/19 04:51 Dose: 4 mg Ondansetron HCl (Zofran) 4 mg IVPUSH ONETIME ONE Stop: 06/06/19 04:38 Last Admin: 06/06/19 04:52 Dose: 4 mg Oxycodone/Acetaminophen (Percocet 325-5 Mg) 2 tab PO Q4H PRN PRN Reason: Pain (moderate 4-6) Last Admin: 06/06/19 10:41 Dose: 2 tab - Exam General: Alert, Oriented, Cooperative, Other (Diaphoretic) HEENT: Pupils Equal, Pupils Reactive Lungs: Normal Respiratory Effort Cardiovascular: Tachycardia GI/Abdominal Exam: Soft, Tender (RLQ) Extremities: Normal Inspection, Normal Range of Motion Sepsis Event Note - Evaluation Sepsis Screening Result: No Definite Risk Possible Source of Sepsis: GI Tract/Intra-abdominal - Focused Exam Vital Signs: Vital Signs Temp Pulse Resp BP Pulse Ox 06/07/19 04:24 37.2 C 96 16 111/65 95 Capillary Refill, Detail: Less than/Equal to (</=) 2 Seconds Pulse Description: 2+ Normal Peripheral Pulse Location: Radial Skin Exam (Focused Sepsis): Flushed, Diaphoretic Date Exam was Performed: 06/07/19 Time Exam was Performed: 08:15 - Bedside Monitoring Bedside Ultrasound Performed: No Passive Leg Raise/Fluid Bolus: Not Performed Date Bedside Monitoring was Performed: 06/07/19 Time Bedside Monitoring was Performed: 08:16 - Problem List & Annotations (1) Cholecystitis SNOMED Code(s): 25503058 Code(s): K81.9 - CHOLECYSTITIS, UNSPECIFIED Status: Acute Current Visit: Yes - Problem List Review Problem List Initiated/Reviewed/Updated: Yes - My Orders Last 24 Hours: Active Orders 24 hr Category Date Time Status Patient Status [ADT] Routine ADT 06/06/19 07:40 Active Communication Order [RC] PER UNIT ROUTINE Care 06/06/19 11:27 Active Intake and Output [RC] Q12H Care 06/06/19 07:40 Active Oxygen Therapy [RC] PRN Care 06/06/19 07:40 Active KITCHEN RUNNER Record [RC] Q4H Care 06/06/19 11:27 Active RT Incentive Spirometry [RC] Q1HWA Care 06/06/19 07:40 Active Up ad Yaima [RC] ASDIRECTED Care 06/06/19 07:40 Active Vital Signs [RC] PER UNIT ROUTINE Care 06/06/19 07:40 Active Vital Signs [RC] PER UNIT ROUTINE Care 06/06/19 11:27 Active NPO After Midnight [Nothing per Oral After Midnight Diet 06/06/19 Lunch Active Diet] [DIET] Abdomen wo Cont [MR] Routine Exams 06/07/19 07:57 Ordered Ketorolac [Toradol] Med 06/06/19 18:00 Active 30 mg IVPUSH Q6H Ketorolac [Toradol] Med 06/06/19 11:28 Active 30 mg IVPUSH Q6H PRN Lactated Ringers [Ringers, Lactated] 1,000 ml Med 06/06/19 07:45 Active IV Q8H Morphine PF [Morphine KITCHEN RUNNER 30 MG in 30 ML] Med 06/06/19 11:30 Active See Protocol IV ASDIRECTED Naloxone [Narcan] Med 06/06/19 11:25 Active 0.04 mg IVPUSH Q3M PRN Omeprazole Med 06/06/19 09:00 Active 20 mg PO ACBREAKFAST Ondansetron [Zofran] Med 06/06/19 07:40 Active 4 mg IVPUSH Q6H PRN Ondansetron [Zofran] Med 06/06/19 11:25 Active 4 mg IVPUSH Q6H PRN Piperacillin/Tazobactam [Piperacil-Tazobact] 3.375 gm Med 06/06/19 12:00 Active Sodium Chloride 0.9% [Normal Saline] 50 ml IV Q6H Promethazine [Phenergan] Med 06/06/19 07:40 Active 25 mg IM Q6H PRN Scopolamine [Transderm-Scop] Med 06/07/19 07:02 Active 1.5 mg TRDERM Q72H PRN Sodium Chloride 0.9% [Normal Saline] Med 06/06/19 07:40 Active 10 ml IV ASDIRECTED PRN Sodium Chloride 0.9% [Saline Flush] Med 06/06/19 07:40 Active 10 ml FLUSH ASDIRECTED PRN Sodium Chloride 0.9% [Saline Flush] Med 06/06/19 07:40 Active 2.5 ml FLUSH ASDIRECTED PRN diphenhydrAMINE [Benadryl] Med 06/06/19 07:40 Active 25 mg IVPUSH Q4H PRN diphenhydrAMINE [Benadryl] Med 06/06/19 11:25 Active 25 mg IVPUSH Q6H PRN diphenhydrAMINE [Benadryl] Med 06/06/19 11:25 Active 25 mg PO Q6H PRN Peripheral IV Insertion Adult [OM.PC] Urgent Oth 06/06/19 07:40 Ordered Resuscitation Status Routine Resus Stat 06/06/19 07:40 Ordered Medication Orders Diphenhydramine HCl (Benadryl) 25 mg IVPUSH Q4H PRN PRN Reason: Itching Diphenhydramine HCl (Benadryl) 25 mg IVPUSH Q6H PRN PRN Reason: Itching Diphenhydramine HCl (Benadryl) 25 mg PO Q6H PRN PRN Reason: Itching Lactated Ringer's (Ringers, Lactated) 1,000 mls @ 150 mls/hr IV ASDIRECTED [facility] Last Infusion: 06/06/19 13:23 Dose: 150 mls/hr Admin: 06/06/19 06:42 Dose: 150 mls/hr Lactated Ringer's (Ringers, Lactated) 1,000 mls @ 125 mls/hr IV Q8H [facility] Last Admin: 06/07/19 07:42 Dose: 125 mls/hr Infusion: 06/07/19 07:42 Dose: 125 mls/hr Admin: 06/06/19 23:45 Dose: 125 mls/hr Infusion: 06/06/19 23:45 Dose: 125 mls/hr Admin: 06/06/19 16:17 Dose: 125 mls/hr Infusion: 06/06/19 16:17 Dose: 125 mls/hr Admin: 06/06/19 08:17 Dose: 125 mls/hr Piperacillin Sod/Tazobactam (Sod 3.375 gm/ Sodium Chloride) 50 mls @ 100 mls/ hr IV Q6H [facility] Last Admin: 06/07/19 06:52 Dose: 100 mls/hr Infusion: 06/07/19 00:12 Dose: 100 mls/hr Admin: 06/06/19 23:42 Dose: 100 mls/hr Infusion: 06/06/19 18:55 Dose: 100 mls/hr Admin: 06/06/19 18:25 Dose: 100 mls/hr Infusion: 06/06/19 12:22 Dose: 100 mls/hr Admin: 06/06/19 11:52 Dose: 100 mls/hr Ketorolac Tromethamine (Toradol) 30 mg IVPUSH Q6H PRN PRN Reason: Abdominal Pain Stop: 06/11/19 11:28 Last Admin: 06/06/19 11:46 Dose: 30 mg Ketorolac Tromethamine (Toradol) 30 mg IVPUSH Q6H [facility] Stop: 06/11/19 12:32 Last Admin: 06/07/19 06:52 Dose: 30 mg Admin: 06/06/19 23:40 Dose: 30 mg Admin: 06/06/19 18:22 Dose: 30 mg Morphine Sulfate (Morphine Cap Parts Cutter 30 Mg In 30 Ml) 0 mg IV ASDIRECTED [facility]; Protocol Last Admin: 06/07/19 07:38 Dose: 30 mg Admin: 06/06/19 12:37 Dose: 30 mg Naloxone HCl (Narcan) 0.04 mg IVPUSH Q3M PRN PRN Reason: Respiratory Depression Omeprazole (Omeprazole) 20 mg PO ACBREAKFAST [facility] Last Admin: 06/07/19 06:52 Dose: 20 mg Admin: 06/06/19 08:20 Dose: 20 mg Ondansetron HCl (Zofran) 4 mg IVPUSH Q6H PRN PRN Reason: Nausea/Vomiting Last Admin: 06/06/19 09:36 Dose: 4 mg Ondansetron HCl (Zofran) 4 mg IVPUSH Q6H PRN PRN Reason: Nausea/Vomiting Promethazine HCl (Phenergan) 25 mg IM Q6H PRN PRN Reason: Nausea Scopolamine (Transderm-Scop) 1.5 mg TRDERM Q72H PRN PRN Reason: Nausea Sodium Chloride (Saline Flush) 10 ml FLUSH ASDIRECTED PRN PRN Reason: Keep Vein Open Sodium Chloride (Saline Flush) 2.5 ml FLUSH ASDIRECTED PRN PRN Reason: Keep Vein Open Sodium Chloride (Saline Flush) 10 ml FLUSH ASDIRECTED PRN PRN Reason: Keep Vein Open Sodium Chloride (Saline Flush) 2.5 ml FLUSH ASDIRECTED PRN PRN Reason: Keep Vein Open Sodium Chloride (Normal Saline) 10 ml IV ASDIRECTED PRN PRN Reason: IV Use - Plan Plan (Free Text/Narrative):: Patient's pain was controlled overnight with morphine traffic control specialist and scheduled toradol. This morning his WBC is up to 20K with a left shift and his bilirubin has increased to 2.3 with an increased AST at 47. He was hypertensive yesterday with a HR in the 60s. This morning his HR is up to 96 and his BP is 111/69. Likely his gallbladder is gangrenous or necrotic. I will get a stat MRI this am to rule out choledocholithiasis. They could not see his CBD on US yesterday. If he has no choledocholithiasis, will take him for an open gallbladder this am given the severe degree of inflammation I saw on CT and US yesterday, the fact i can palpate the gallbladder on the abdomen, and the fact he is getting sicker with decreased BP and increased HR. If he has choledocholithiasis will transfer to [facility].
--- NOTE | 2019-06-07 09:14 | MR ---
INDICATION: Elevated bilirubin. Evaluate for choledocholithiasis. COMPARISON: CT scan of the abdomen and pelvis dated 06 June 2019. TECHNIQUE: MRCP with heavily T2 weighted 2D and 3D MRCP images. Axial T1 in- and out of phase and T2 weighted images also performed. No gadolinium administered. FINDINGS: No fatty infiltration of the liver. No focal abnormalities identified in the visualized portions of the liver, spleen, pancreas, and adrenal glands. A few very small bilateral renal cysts. The kidneys are otherwise unremarkable. No hydronephrosis. No intra or extrahepatic bile duct dilation with the common bile duct measuring 4 mm. No filling defects in the biliary system. Normal size of the main pancreatic duct. Scattered gallstones in the gallbladder. Diffuse gallbladder wall thickening and [place] cholecystic fluid/edema. IMPRESSION: 1. Cholelithiasis with pericholecystic edema consistent with cholecystitis. 2. No bile duct dilation. No choledocholithiasis. Normal size of the main pancreatic duct. Dictated by Darion Garcia MD @ 06/07/2019 9:12:22 AM Dictated by: Darion Garcia MD @ 06/07/2019 09:12:39 (Electronically Signed)
[2019-06-07] MEDS ORDERED: Sugammadex Sodium 200 MG/2 ML VIAL ONE (09:21)
[2019-06-07] MEDS ORDERED: ceFAZolin 1 GM Vial ONE (09:30)
[2019-06-07] MEDS ORDERED: Bupivacaine 0.5% 30 ML SDV ONE (09:30)
[2019-06-07] MEDS ORDERED: 50% Dextrose in Water 50 ML Syringe IVPUSH PRN (09:38)
[2019-06-07] MEDS ORDERED: Albuterol 0.083% 2.5 MG/3 ML Neb Soln NEB PRN (09:38)
[2019-06-07] MEDS ORDERED: Naloxone 0.4 MG/ML Syringe IVPUSH PRN (09:38)
[2019-06-07] MEDS ORDERED: fentaNYL 100 MCG/2 ML SDV IVPUSH PRN ×2 (09:38→10:55)
[2019-06-07] MEDS ORDERED: Atropine 0.1 MG/ML 10 ML Syringe IVPUSH PRN ×2 (09:38)
[2019-06-07] MEDS ORDERED: EPINEPHrine 1:10,000 1 MG/10 ML Syringe IVPUSH PRN (09:38)
[2019-06-07] MEDS ORDERED: Phenylephrine 1% 10 MG/ML SDV ONE (09:44)
[2019-06-07] MEDS ORDERED: Propofol 200 MG/20 ML SDV ONE (09:47)
[2019-06-07] MEDS ORDERED: fentaNYL 250 MCG/5 ML SDV ONE (09:48)
[2019-06-07] MEDS ORDERED: Midazolam 1 MG/ML 2 ML SDV ONE (09:48)
[2019-06-07] MEDS ORDERED: Rocuronium 100 MG/10 ML Syringe ONE (09:49)
[2019-06-07] MEDS ORDERED: ePHEDrine 50 MG/ML SDV ONE (09:49)
[2019-06-07] MEDS ORDERED: Phenylephrine/Normal Saline 100 MCG/ML 10 ML Syringe ONE (09:49)
[2019-06-07] MEDS ORDERED: Lidocaine 2% 5 ML SDV ONE (09:49)
[2019-06-07] MEDS ORDERED: Ondansetron 4 MG/2 ML SDV ONE (09:49)
[2019-06-07] MEDS ORDERED: Glycopyrrolate 0.2 MG/ML SDV ONE (09:49)
[2019-06-07] MEDS ORDERED: HYDROmorphone 2 MG/ML Syringe ONE (10:47)
[2019-06-07] MEDS ORDERED: Naloxone 0.4 MG/ML Syringe ONE (11:46)
--- NOTE | 2019-06-07 11:52 | PCM.OPNOTE ---
- General Post-Op/Procedure Note Date of Surgery/Procedure: 06/07/19 Operative Procedure(s): Open cholecystectomy Findings: Necrotic edematous gallbladder associated with severe inflammation Pre Op Diagnosis: Acute cholecystitis with cholelithiasis Post-Op Diagnosis: Gangrenous cholecystitis, hypospadias Anesthesia Technique: General ET Tube Primary Surgeon: Tameka Veliz Fluid Replacement, Intraop: 1,300 EBL in mLs: 100 Surgical Drain/Tube Type: Alex Drain Condition: Fair Free Text/Narrative:: Intake & Output 06/06/19 06/07/19 06/07/19 22:59 06:59 14:59 Intake Total 1100 1585 Output Total 1575 700 Balance -475 885
--- NOTE | 2019-06-07 13:07 | PCM.POSTAN ---
POST ANESTHESIA ASSESSMENT - MENTAL STATUS Mental Status: Alert, Oriented - VITAL SIGNS Vital Signs: Last Vital Signs Temp 37.3 C 06/07/19 11:59 Pulse 99 06/07/19 13:01 Resp 11 L 06/07/19 13:01 BP 123/78 06/07/19 13:01 Pulse Ox 95 06/07/19 13:01 - RESPIRATORY Respiratory Status: Respiratory Rate WNL, Airway Patent, O2 Saturation Stable - CARDIOVASCULAR CV Status: Pulse Rate WNL, Blood Pressure Stable - GASTROINTESTINAL GI Status: No Symptoms - PAIN Pain Score: 3 - POST OP HYDRATION Hydration Status: Adequate & Stable - OBSERVATIONS Free Text/Narrative:: No anesthesia problems
--- NOTE | 2019-06-07 16:30 | PCM.SURGPN ---
- General Info Date of Service: 06/07/19 Date of Surgery/Procedure: 06/07/19 POD#: 0 Functional Status: Reports: Pain Controlled, Tolerating Diet, Ambulating, Urinating, Incentive Spirometry. Denies: New Symptoms - Review of Systems General: Reports: No Symptoms HEENT: Reports: No Symptoms Pulmonary: Reports: No Symptoms Cardiovascular: Reports: No Symptoms Gastrointestinal: Reports: No Symptoms Genitourinary: Reports: No Symptoms Musculoskeletal: Reports: No Symptoms Skin: Reports: No Symptoms - Patient Data Vitals - Most Recent: Last Vital Signs Temp 37.1 C 06/07/19 14:30 Pulse 98 06/07/19 16:15 Resp 19 06/07/19 16:15 BP 121/74 06/07/19 16:15 Pulse Ox 93 L 06/07/19 16:15 Weight - Most Recent: 89.8 kg I&O - Last 24 Hours: Intake & Output 06/07/19 06/07/19 06/07/19 06:59 14:59 22:59 Intake Total 1585 3300 Output Total 700 Balance 885 3300 Lab Results Last 24 Hrs: Laboratory Results - last 24 hr 06/07/19 06/07/19 06/07/19 Range/Units 05:54 05:54 05:54 WBC 20.00 H (4.0-11.0) K/uL RBC 5.08 (4.50-5.90) M/uL Hgb 14.7 (13.0-17.0) g/dL Hct 43.1 (38.0-50.0) % MCV 84.8 (80.0-98.0) fL MCH 28.9 (27.0-32.0) pg MCHC 34.1 (31.0-37.0) g/dL RDW Std Deviation 41.8 (28.0-62.0) fl RDW Coeff of Abhishek 14 (11.0-15.0) % Plt Count 281 (150-400) K/uL MPV 9.60 (7.40-12.00) fL Add Manual Diff YES Neutrophils % (Manual) 89 H (48.0-80.0) % Lymphocytes % (Manual) 2 L (16.0-40.0) % Monocytes % (Manual) 8 (0.0-15.0) % Eosinophils % (Manual) 1 (0.0-7.0) % Absolute Seg Neuts 17.8 H (1.4-5.7) Lymphocytes # (Manual) 0.4 L (0.6-2.4) Monocytes # (Manual) 1.6 H (0.0-0.8) Eosinophils # (Manual) 0.2 (0.0-0.7) Lactate (0.20-2.00) mmol/L Sodium 134 L (136-148) mmol/L Potassium 4.5 (3.5-5.1) mmol/L Chloride 100 (98-107) mmol/L Carbon Dioxide 29.2 (21.0-32.0) mmol/L BUN 11 (7.0-18.0) mg/dL Creatinine 1.0 (0.8-1.3) mg/dL Est Cr Clr Drug Dosing 92.48 mL/min Estimated GFR (MDRD) > 60.0 ml/min Glucose 99 (74-106) mg/dL Calcium 8.8 (8.5-10.1) mg/dL Magnesium 1.7 L (1.8-2.4) mg/dL Total Bilirubin 2.3 H (0.2-1.0) mg/dL AST 47 H (15-37) IU/L ALT 62 (14-63) IU/L Alkaline Phosphatase 96 (46-116) U/L Total Protein 6.5 (6.4-8.2) g/dL Albumin 2.9 L (3.4-5.0) g/dL Globulin 3.6 (2.6-4.0) g/dL Albumin/Globulin Ratio 0.8 L (0.9-1.6) 06/07/19 Range/Units 07:15 WBC (4.0-11.0) K/uL RBC (4.50-5.90) M/uL Hgb (13.0-17.0) g/dL Hct (38.0-50.0) % MCV (80.0-98.0) fL MCH (27.0-32.0) pg MCHC (31.0-37.0) g/dL RDW Std Deviation (28.0-62.0) fl RDW Coeff of Abhishek (11.0-15.0) % Plt Count (150-400) K/uL MPV (7.40-12.00) fL Add Manual Diff Neutrophils % (Manual) (48.0-80.0) % Lymphocytes % (Manual) (16.0-40.0) % Monocytes % (Manual) (0.0-15.0) % Eosinophils % (Manual) (0.0-7.0) % Absolute Seg Neuts (1.4-5.7) Lymphocytes # (Manual) (0.6-2.4) Monocytes # (Manual) (0.0-0.8) Eosinophils # (Manual) (0.0-0.7) Lactate 0.9 (0.20-2.00) mmol/L Sodium (136-148) mmol/L Potassium (3.5-5.1) mmol/L Chloride (98-107) mmol/L Carbon Dioxide (21.0-32.0) mmol/L BUN (7.0-18.0) mg/dL Creatinine (0.8-1.3) mg/dL Est Cr Clr Drug Dosing mL/min Estimated GFR (MDRD) ml/min Glucose (74-106) mg/dL Calcium (8.5-10.1) mg/dL Magnesium (1.8-2.4) mg/dL Total Bilirubin (0.2-1.0) mg/dL AST (15-37) IU/L ALT (14-63) IU/L Alkaline Phosphatase (46-116) U/L Total Protein (6.4-8.2) g/dL Albumin (3.4-5.0) g/dL Globulin (2.6-4.0) g/dL Albumin/Globulin Ratio (0.9-1.6) Med Orders - Current: Current Medications Albuterol (Proventil Neb Soln) 2.5 mg NEB ONETIME PRN PRN Reason: Wheezing Atropine Sulfate (Atropine 0.1 Mg/Ml) 0.5 mg IVPUSH ASDIRECTED PRN PRN Reason: Hypo-perfusion Atropine Sulfate (Atropine 0.1 Mg/Ml) 1 mg IVPUSH ASDIRECTED PRN PRN Reason: Hypo-Perfusion Dextrose/Water (Dextrose 50% In Water) 50 ml IVPUSH ASDIRECTED PRN PRN Reason: Hypoglycemia Diphenhydramine HCl (Benadryl) 25 mg IVPUSH Q4H PRN PRN Reason: Itching Diphenhydramine HCl (Benadryl) 25 mg IVPUSH Q6H PRN PRN Reason: Itching Diphenhydramine HCl (Benadryl) 25 mg PO Q6H PRN PRN Reason: Itching Epinephrine HCl (Epinephrine 1:10,000) 1 mg IVPUSH ASDIRECTED PRN PRN Reason: ACLS Guidelines Fentanyl (Sublimaze) 50 - 100 mcg IVPUSH Q5M PRN PRN Reason: Pain Fentanyl (Sublimaze) 50 mcg IVPUSH Q5M PRN PRN Reason: Pain Lactated Ringer's (Ringers, Lactated) 1,000 mls @ 150 mls/hr IV ASDIRECTED [facility] Last Infusion: 06/06/19 13:23 Dose: Infused Lactated Ringer's (Ringers, Lactated) 1,000 mls @ 125 mls/hr IV Q8H [facility] Last Admin: 06/07/19 07:42 Dose: 125 mls/hr Piperacillin Sod/Tazobactam (Sod 3.375 gm/ Sodium Chloride) 50 mls @ 100 mls/ hr IV Q6H [facility] Last Admin: 06/07/19 12:28 Dose: 100 mls/hr Ketorolac Tromethamine (Toradol) 30 mg IVPUSH Q6H PRN PRN Reason: Abdominal Pain Stop: 06/11/19 11:28 Last Admin: 06/06/19 11:46 Dose: 30 mg Ketorolac Tromethamine (Toradol) 30 mg IVPUSH Q6H [facility] Stop: 06/11/19 12:32 Last Admin: 06/07/19 14:17 Dose: Not Given Morphine Sulfate (Morphine Associate Accountant 30 Mg In 30 Ml) 0 mg IV ASDIRECTED [facility]; Protocol Last Admin: 06/07/19 07:38 Dose: 30 mg Naloxone HCl (Narcan) 0.04 mg IVPUSH Q3M PRN PRN Reason: Respiratory Depression Naloxone HCl (Narcan) 0.1 mg IVPUSH ASDIRECTED PRN PRN Reason: Respiratory Depression Omeprazole (Omeprazole) 20 mg PO ACBREAKFAST [facility] Last Admin: 06/07/19 06:52 Dose: 20 mg Ondansetron HCl (Zofran) 4 mg IVPUSH Q6H PRN PRN Reason: Nausea/Vomiting Last Admin: 06/06/19 09:36 Dose: 4 mg Ondansetron HCl (Zofran) 4 mg IVPUSH Q6H PRN PRN Reason: Nausea/Vomiting Promethazine HCl (Phenergan) 25 mg IM Q6H PRN PRN Reason: Nausea Scopolamine (Transderm-Scop) 1.5 mg TRDERM Q72H PRN PRN Reason: Nausea Sodium Chloride (Saline Flush) 10 ml FLUSH ASDIRECTED PRN PRN Reason: Keep Vein Open Sodium Chloride (Saline Flush) 2.5 ml FLUSH ASDIRECTED PRN PRN Reason: Keep Vein Open Sodium Chloride (Saline Flush) 10 ml FLUSH ASDIRECTED PRN PRN Reason: Keep Vein Open Sodium Chloride (Saline Flush) 2.5 ml FLUSH ASDIRECTED PRN PRN Reason: Keep Vein Open Sodium Chloride (Normal Saline) 10 ml IV ASDIRECTED PRN PRN Reason: IV Use Discontinued Medications Bupivacaine HCl (Marcaine 0.5%) Confirm Administered Dose 120 ml .ROUTE .STK- MED ONE Stop: 06/07/19 09:31 Cefazolin Sodium (Ancef) Confirm Administered Dose 1 gm .ROUTE .STK-MED ONE Stop: 06/07/19 09:31 Ephedrine Sulfate (Ephedrine Sulfate) Confirm Administered Dose 50 mg .ROUTE .STK-MED ONE Stop: 06/07/19 09:50 Fentanyl (Sublimaze) Confirm Administered Dose 250 mcg .ROUTE .STK-MED ONE Stop: 06/07/19 09:49 Glycopyrrolate (Robinul) Confirm Administered Dose 0.2 mg .ROUTE .STK-MED ONE Stop: 06/07/19 09:50 Hydromorphone HCl (Dilaudid) 1 mg IVPUSH ONETIME ONE Stop: 06/06/19 06:10 Last Admin: 06/06/19 06:16 Dose: 1 mg Hydromorphone HCl (Dilaudid) 0.5 mg IVPUSH Q1H PRN PRN Reason: Pain (severe 7-10) Last Admin: 06/06/19 09:34 Dose: 0.5 mg Hydromorphone HCl (Dilaudid) Confirm Administered Dose 2 mg .ROUTE .STK-MED ONE Stop: 06/07/19 10:48 Pantoprazole Sodium 80 mg/ (Sodium Chloride) 20 mls @ 420 mls/hr IVPUSH ONETIME ONE Stop: 06/06/19 04:38 Last Admin: 06/06/19 04:52 Dose: 420 mls/hr Sodium Chloride (Normal Saline) 1,000 mls @ 999 mls/hr IV STAT ONE Stop: 06/06/19 05:36 Last Admin: 06/06/19 04:45 Dose: 999 mls/hr Piperacillin Sod/Tazobactam (Sod 4.5 gm/ Sodium Chloride) 100 mls @ 100 mls/hr IV ONETIME ONE Stop: 06/06/19 07:15 Last Admin: 06/06/19 06:22 Dose: 100 mls/hr Iopamidol (Isovue Multipack-370 (76%)) 100 ml IVPUSH ONETIME ONE Stop: 06/06/19 05:33 Last Admin: 06/06/19 05:33 Dose: 100 ml Lidocaine (Xylocaine-Mpf 2%) Confirm Administered Dose 5 ml .ROUTE .STK-MED ONE Stop: 06/07/19 09:50 Midazolam HCl (Versed 1 Mg/Ml) Confirm Administered Dose 2 mg .ROUTE .STK-MED ONE Stop: 06/07/19 09:49 Morphine Sulfate (Morphine) 4 mg IVPUSH ONETIME ONE Stop: 06/06/19 04:37 Last Admin: 06/06/19 04:51 Dose: 4 mg Naloxone HCl (Narcan) Confirm Administered Dose 0.4 mg .ROUTE .STK-MED ONE Stop: 06/07/19 11:47 Ondansetron HCl (Zofran) 4 mg IVPUSH ONETIME ONE Stop: 06/06/19 04:38 Last Admin: 06/06/19 04:52 Dose: 4 mg Ondansetron HCl (Zofran) Confirm Administered Dose 4 mg .ROUTE .STK-MED ONE Stop: 06/07/19 09:50 Oxycodone/Acetaminophen (Percocet 325-5 Mg) 2 tab PO Q4H PRN PRN Reason: Pain (moderate 4-6) Last Admin: 06/06/19 10:41 Dose: 2 tab Phenylephrine HCl (Hugh-Synephrine) Confirm Administered Dose 10 mg .ROUTE .STK- MED ONE Stop: 06/07/19 09:45 Phenylephrine HCl (Phenylephrine In Ns 100 Mcg/Ml) Confirm Administered Dose 2 mg .ROUTE .STK-MED ONE Stop: 06/07/19 09:50 Propofol (Diprivan 20 Ml) Confirm Administered Dose 200 mg .ROUTE .STK-MED ONE Stop: 06/07/19 09:48 Rocuronium [place] (Zemuron) Confirm Administered Dose 100 mg .ROUTE .STK-MED ONE Stop: 06/07/19 09:50 Succinylcholine Chloride (Succinylcholine Chloride) Confirm Administered Dose 200 mg .ROUTE .STK-MED ONE Stop: 06/07/19 09:50 Sugammadex Sodium (Bridion) Confirm Administered Dose 200 mg .ROUTE .STK-MED ONE Stop: 06/07/19 09:22 - Exam Wound/Incisions: Healing Well, Dressing Dry and Intact General: Alert, Oriented HEENT: Pupils Equal, Pupils Reactive Neck: Supple Lungs: Normal Respiratory Effort Cardiovascular: Regular Rate GI/Abdominal Exam: Soft, Non-Tender, No Distention, No Mass, Other (RUQ drain with dark brown output (likely surgicel and some oozing blood, no evidence of bile). ) Sepsis Event Note - Evaluation Sepsis Screening Result: No Definite Risk - Focused Exam Vital Signs: Vital Signs Temp Pulse Resp BP Pulse Ox 06/07/19 16:15 98 19 121/74 93 L 06/07/19 16:00 94 18 118/73 94 L 06/07/19 15:45 90 15 119/75 96 06/07/19 15:30 85 14 119/72 95 06/07/19 15:00 91 16 117/75 98 06/07/19 14:30 37.1 C 95 11 L 123/78 95 06/07/19 14:15 104 H 21 H 130/80 96 06/07/19 14:00 99 14 127/80 95 06/07/19 13:45 89 10 L 122/76 95 06/07/19 13:38 37.2 C 93 14 125/88 96 06/07/19 13:15 37.6 C 93 15 122/76 95 06/07/19 13:01 99 11 L 123/78 95 06/07/19 12:55 112 H 13 123/82 97 06/07/19 12:50 108 H 15 130/85 95 06/07/19 12:44 109 H 13 124/84 95 06/07/19 12:39 111 H 20 126/84 94 L 06/07/19 12:34 111 H 10 L 140/98 H 98 06/07/19 12:29 107 H 14 127/81 98 06/07/19 12:24 107 H 15 144/89 H 100 06/07/19 12:19 103 H 15 145/82 H 100 06/07/19 12:14 104 H 15 140/87 100 06/07/19 12:09 103 H 22 H 137/87 100 06/07/19 12:04 112 H 22 H 147/92 H 100 06/07/19 11:59 37.3 C 112 H 16 100/64 95 06/07/19 08:17 37.6 C 93 18 111/69 92 L 06/07/19 04:24 37.2 C 96 16 111/65 95 Date Exam was Performed: 06/07/19 Time Exam was Performed: 16:23 - Problem List & Annotations (1) Cholecystitis SNOMED Code(s): 61210104 Code(s): K81.9 - CHOLECYSTITIS, UNSPECIFIED Status: Acute Current Visit: Yes - Problem List Review Problem List Initiated/Reviewed/Updated: Yes - My Orders Last 24 Hours: Active Orders 24 hr Category Date Time Status Patient Status [ADT] Routine ADT 06/07/19 11:54 Active Blood Glucose Check, Bedside [RC] PRN Care 06/07/19 09:38 Active Cardiac Monitoring [RC] . DIRECTED Care 06/07/19 11:53 Active Communication Order [RC] PER UNIT ROUTINE Care 06/07/19 13:44 Active Notify Provider Vital Signs [RC] ASDIRECTED Care 06/07/19 09:38 Active RT Aerosol Therapy [RC] ASDIRECTED Care 06/07/19 09:38 Active Vital Signs [RC] Q5M Care 06/07/19 09:38 Active CBC W/O DIFF,HEMOGRAM [HEME] AM Lab 06/08/19 05:11 Ordered CMP [COMPREHENSIVE METABOLIC PN,CMP] [CHEM] AM Lab 06/08/19 05:11 Ordered CMP [COMPREHENSIVE METABOLIC PN,CMP] [CHEM] AM Lab 06/09/19 05:11 Ordered Albuterol [Proventil Neb Soln] Med 06/07/19 09:38 Active 2.5 mg NEB ONETIME PRN Atropine [Atropine 0.1 MG/ML] Med 06/07/19 09:38 Active 0.5 mg IVPUSH ASDIRECTED PRN Atropine [Atropine 0.1 MG/ML] Med 06/07/19 09:38 Active 1 mg IVPUSH ASDIRECTED PRN Dextrose 50% in Water Med 06/07/19 09:38 Active 50 ml IVPUSH ASDIRECTED PRN EPINEPHrine [EPINEPHrine 1:10,000] Med 06/07/19 09:38 Active 1 mg IVPUSH ASDIRECTED PRN Ketorolac [Toradol] Med 06/06/19 18:00 Active 30 mg IVPUSH Q6H Naloxone [Narcan] Med 06/07/19 09:38 Active 0.1 mg IVPUSH ASDIRECTED PRN Scopolamine [Transderm-Scop] Med 06/07/19 07:02 Active 1.5 mg TRDERM Q72H PRN fentaNYL [Sublimaze] Med 06/07/19 09:38 Active 50 - 100 mcg IVPUSH Q5M PRN fentaNYL [Sublimaze] Med 06/07/19 10:55 Active 50 mcg IVPUSH Q5M PRN Medication Orders Albuterol (Proventil Neb Soln) 2.5 mg NEB ONETIME PRN PRN Reason: Wheezing Atropine Sulfate (Atropine 0.1 Mg/Ml) 0.5 mg IVPUSH ASDIRECTED PRN PRN Reason: Hypo-perfusion Atropine Sulfate (Atropine 0.1 Mg/Ml) 1 mg IVPUSH ASDIRECTED PRN PRN Reason: Hypo-Perfusion Dextrose/Water (Dextrose 50% In Water) 50 ml IVPUSH ASDIRECTED PRN PRN Reason: Hypoglycemia Diphenhydramine HCl (Benadryl) 25 mg IVPUSH Q4H PRN PRN Reason: Itching Diphenhydramine HCl (Benadryl) 25 mg IVPUSH Q6H PRN PRN Reason: Itching Diphenhydramine HCl (Benadryl) 25 mg PO Q6H PRN PRN Reason: Itching Epinephrine HCl (Epinephrine 1:10,000) 1 mg IVPUSH ASDIRECTED PRN PRN Reason: ACLS Guidelines Fentanyl (Sublimaze) 50 - 100 mcg IVPUSH Q5M PRN PRN Reason: Pain Fentanyl (Sublimaze) 50 mcg IVPUSH Q5M PRN PRN Reason: Pain Lactated Ringer's (Ringers, Lactated) 1,000 mls @ 150 mls/hr IV ASDIRECTED [facility] Last Infusion: 06/06/19 13:23 Dose: 150 mls/hr Admin: 06/06/19 06:42 Dose: 150 mls/hr Lactated Ringer's (Ringers, Lactated) 1,000 mls @ 125 mls/hr IV Q8H [facility] Last Admin: 06/07/19 07:42 Dose: 125 mls/hr Infusion: 06/07/19 07:42 Dose: 125 mls/hr Admin: 06/06/19 23:45 Dose: 125 mls/hr Infusion: 06/06/19 23:45 Dose: 125 mls/hr Admin: 06/06/19 16:17 Dose: 125 mls/hr Infusion: 06/06/19 16:17 Dose: 125 mls/hr Admin: 06/06/19 08:17 Dose: 125 mls/hr Piperacillin Sod/Tazobactam (Sod 3.375 gm/ Sodium Chloride) 50 mls @ 100 mls/ hr IV Q6H [facility] Last Admin: 06/07/19 12:28 Dose: 100 mls/hr Infusion: 06/07/19 07:22 Dose: 100 mls/hr Admin: 06/07/19 06:52 Dose: 100 mls/hr Infusion: 06/07/19 00:12 Dose: 100 mls/hr Admin: 06/06/19 23:42 Dose: 100 mls/hr Infusion: 06/06/19 18:55 Dose: 100 mls/hr Admin: 06/06/19 18:25 Dose: 100 mls/hr Infusion: 06/06/19 12:22 Dose: 100 mls/hr Admin: 06/06/19 11:52 Dose: 100 mls/hr Ketorolac Tromethamine (Toradol) 30 mg IVPUSH Q6H PRN PRN Reason: Abdominal Pain Stop: 06/11/19 11:28 Last Admin: 06/06/19 11:46 Dose: 30 mg Ketorolac Tromethamine (Toradol) 30 mg IVPUSH Q6H [facility] Stop: 06/11/19 12:32 Last Admin: 06/07/19 14:17 Dose: Not Given Admin: 06/07/19 06:52 Dose: 30 mg Admin: 06/06/19 23:40 Dose: 30 mg Admin: 06/06/19 18:22 Dose: 30 mg Morphine Sulfate (Morphine Associate Accountant 30 Mg In 30 Ml) 0 mg IV ASDIRECTED [facility]; Protocol Last Admin: 06/07/19 07:38 Dose: 30 mg Admin: 06/06/19 12:37 Dose: 30 mg Naloxone HCl (Narcan) 0.04 mg IVPUSH Q3M PRN PRN Reason: Respiratory Depression Naloxone HCl (Narcan) 0.1 mg IVPUSH ASDIRECTED PRN PRN Reason: Respiratory Depression Omeprazole (Omeprazole) 20 mg PO ACBREAKFAST [facility] Last Admin: 06/07/19 06:52 Dose: 20 mg Admin: 06/06/19 08:20 Dose: 20 mg Ondansetron HCl (Zofran) 4 mg IVPUSH Q6H PRN PRN Reason: Nausea/Vomiting Last Admin: 06/06/19 09:36 Dose: 4 mg Ondansetron HCl (Zofran) 4 mg IVPUSH Q6H PRN PRN Reason: Nausea/Vomiting Promethazine HCl (Phenergan) 25 mg IM Q6H PRN PRN Reason: Nausea Scopolamine (Transderm-Scop) 1.5 mg TRDERM Q72H PRN PRN Reason: Nausea Sodium Chloride (Saline Flush) 10 ml FLUSH ASDIRECTED PRN PRN Reason: Keep Vein Open Sodium Chloride (Saline Flush) 2.5 ml FLUSH ASDIRECTED PRN PRN Reason: Keep Vein Open Sodium Chloride (Saline Flush) 10 ml FLUSH ASDIRECTED PRN PRN Reason: Keep Vein Open Sodium Chloride (Saline Flush) 2.5 ml FLUSH ASDIRECTED PRN PRN Reason: Keep Vein Open Sodium Chloride (Normal Saline) 10 ml IV ASDIRECTED PRN PRN Reason: IV Use - Plan Plan (Free Text/Narrative):: Pain: IV morphine [employer] and scheduled Toradol CV/Pulm: BP and heart rate improving. Monitor overnight given gangrenous cholecystitis GI: Clear liquids tonight. Renal: Monitor UOP. CMP in am Heme: Blood loss minimal. Recheck Hgb in am Px: SCDs, no heparin tonight. GI omeprazole until on regular diet.
--- NOTE | 2019-06-07 21:18 | OR ---
SURGEON: TAMEKA DAMON MD DATE OF PROCEDURE: 06/06/2019 PREOPERATIVE DIAGNOSIS: Acute cholecystitis with cholelithiasis. POSTOPERATIVE DIAGNOSIS: Gangrenous cholecystitis. PROCEDURE PERFORMED: Cholecystectomy. PRIMARY SURGEON: Tameka Damon MD. SECONDARY SURGEON: Dr. Ganesh Albarran. ANESTHESIA: General endotracheal anesthesia. FLUIDS: 1500 mL of crystalloid. EBL: 100 mL. FINDINGS: Gangrenous cholecystitis associated with severe inflammatory reaction both of the gallbladder as well as the surrounding tissues. COMPLICATIONS: None. INDICATIONS: The patient is a 58-year-old male who presented to the emergency room with severe right upper quadrant pain. He was admitted to my service with acute cholecystitis. This morning, his white count had increased from 14,000 to 20,000 despite fluids, bowel rest, and IV antibiotics. His bilirubin went from 0.6 to 2.3. A preoperative MRCP was performed to rule out choledocholithiasis. This showed multiple gallstones within the gallbladder. The gallbladder wall was severely thickened. There was a large amount of inflammation in the right upper quadrant. There was no evidence of any blockage of the biliary tree. After review of these images with my partner, Dr. Ganesh Albarran, the decision was made to forego any laparoscopic approach, but to go straight open. I explained this to the patient. I explained the procedure, expected perioperative course, and the risks including bleeding, infection, or damage to surrounding structures. The patient verbalized understanding and wishes to proceed. PROCEDURE IN DETAIL: The patient was brought into the OR and placed on the OR table in supine position. A time-out was completed verifying the patient's name, age, date of , allergies, and procedure to be performed. The right arm was tucked to the patient's side. We attempted to place a Gipson catheter, however, the patient has hypospadias and this was not possible. Given that we were not performing any laparoscopic surgery and we did not expect the case to last for a long period of time, the decision was made to forego any catheter placement. The abdomen was prepped and draped in usual standard fashion. A right upper quadrant oblique incision was made 2 fingerbreadths below the right subcostal margin. A 10 blade was used to perform this. Cautery was used to dissect through the layers of the subcutaneous fat. The anterior abdominal wall fascia and the rectus muscles as well as the obliques were opened using cautery. The posterior rectus sheath was elevated using hemostats and entered sharply. Cautery was then used to open up the remainder of the abdominal wall. Upon entering the abdomen, clear fluid was noted. The colon and surrounding omentum were edematous. We identified the liver edge and a hardened and thickened gallbladder. Given how densely inflamed and distended this was, a metal trocar was placed through the dome of the gallbladder and dark black bilious fluid was aspirated from the gallbladder lumen. This opening then was closed with a 3-0 Vicryl stitch. The gallbladder was grasped with Kellys for manipulation. The proximal gallbladder was encased in a thickened and inflammatory rind which was densely adhered to the surrounding tissues. The decision was made to proceed with a dome down approach and work our way toward the proximal gallbladder. Using a Metzenbaum scissors, Dr. Albarran created a plane between the liver and the gallbladder wall itself. We then used a combination of sharp dissection and cautery to dissect down along the gallbladder fossa. The gallbladder wall was partially necrotic and bile was spilled into the abdomen. Once we were approximately residential down, we then used a Kittner and a combination of sharp dissection to start taking down the inflammatory rind. A harmonic device was used to take down some of this as well. As we did this, we were able to mobilize more of the gallbladder and take down more of the attachments to the gallbladder of the gallbladder wall to the liver bed. When we had reached what appeared to be the infundibulum, we identified the cystic artery. This was doubly clipped and ligated. The tissue around what appeared to be the cystic duct was thickened and inflamed. Given the severe inflammatory reaction that we were encountering, the decision was made to leave a small cuff of the gallbladder wall in place. A right angle was clamped across the most proximal aspect of the gallbladder. Using a Metzenbaum scissors, we sharply removed the gallbladder from just above the clamp. It was passed off the field and sent to Pathology labeled as gallbladder. A 0 Vicryl stick tie was used to over-sew and ligate just underneath the clamp. The clamp was removed. No evidence of bile leak was noted. We then irrigated the operative field with a warm normal saline/Ancef solution. This was all suctioned free. Surgicel was placed in the gallbladder fossa and direct pressure held for 2 minutes. We then re-inspected our field and it was hemostatic. A 19-Portuguese round Alxe drain was then brought in from the right lateral flank and placed in the gallbladder fossa. It was secured to the skin using a 2-0 silk suture. The posterior rectus sheath and oblique muscles were closed with running 0 Vicryl sutures. The anterior rectus sheath and fascia were closed with interrupted 0 Ethibond sutures. An On-Q pump was placed over the fascia. The subcutaneous fat layer was closed with a running 3-0 Vicryl stitch. Skin was then closed with skin erin. Sterile dressings were applied. The patient tolerated the procedure well and was taken to the PACU in stable condition. All counts were complete and correct at the end of the case. JENNIFER ADAM /[id number]
[2019-06-08] MEDS: Lactated Ringers 1,000 ML IV SCH (00:29)
[2019-06-08] MEDS: Piperacillin/Tazobactam 3.375 GM in Sodium Chloride 0.9% 50 ML IV SCH ×4 (05:47→23:17)
[2019-06-08] MEDS: Ketorolac 30 MG/ML SDV IVPUSH SCH (05:47)
[2019-06-08 06:35] LABS: BLOOD UREA NITROGEN,BUN 11 mg/dL (7.0-18.0); CARBON DIOXIDE,CO2 28.9 mmol/L (21.0-32.0); CHLORIDE,CL 101 mmol/L (98-107); GLUCOSE RANDOM 83 mg/dL (74-106); POTASSIUM,K 4.2 mmol/L (3.5-5.1); SODIUM,NA 135 mmol/L (136-148)
[2019-06-08] MEDS: Omeprazole 20 MG Cap.CR PO SCH (06:38)
[2019-06-08] MEDS ORDERED: Morphine 2 MG/ML Syringe IVPUSH PRN (07:35)
[2019-06-08] MEDS ORDERED: Cyclobenzaprine 5 MG Tab PO PRN (07:36)
--- NOTE | 2019-06-08 08:50 | PCM.SURGPN ---
- General Info Date of Service: 06/08/19 Date of Surgery/Procedure: 06/07/19 POD#: 1 Functional Status: Reports: Pain Controlled, Tolerating Diet, Ambulating, Urinating, Incentive Spirometry. Denies: New Symptoms - Review of Systems General: Reports: No Symptoms HEENT: Reports: No Symptoms Pulmonary: Reports: No Symptoms Cardiovascular: Reports: No Symptoms Gastrointestinal: Reports: No Symptoms Genitourinary: Reports: No Symptoms Musculoskeletal: Reports: No Symptoms Skin: Reports: No Symptoms - Patient Data Vitals - Most Recent: Last Vital Signs Temp 36.7 C 06/08/19 02:00 Pulse 84 06/08/19 06:00 Resp 20 06/08/19 06:00 BP 123/75 06/08/19 06:00 Pulse Ox 95 06/08/19 06:00 Weight - Most Recent: 90.038 kg I&O - Last 24 Hours: Intake & Output 06/07/19 06/08/19 06/08/19 22:59 06:59 14:59 Intake Total 3128 623 Output Total 800 1175 Balance -800 1953 623 Lab Results Last 24 Hrs: Laboratory Results - last 24 hr 06/08/19 06/08/19 Range/Units 05:42 05:42 WBC 15.34 H (4.0-11.0) K/uL RBC 4.42 L (4.50-5.90) M/uL Hgb 12.6 L (13.0-17.0) g/dL Hct 39.2 (38.0-50.0) % MCV 88.7 (80.0-98.0) fL MCH 28.5 (27.0-32.0) pg MCHC 32.1 (31.0-37.0) g/dL RDW Std Deviation 45.3 (28.0-62.0) fl RDW Coeff of Abhishek 14 (11.0-15.0) % Plt Count 205 (150-400) K/uL MPV 9.60 (7.40-12.00) fL Nucleated RBC % 0.0 /100WBC Nucleated RBCs # 0 K/uL Sodium 135 L (136-148) mmol/L Potassium 4.2 (3.5-5.1) mmol/L Chloride 101 (98-107) mmol/L Carbon Dioxide 28.9 (21.0-32.0) mmol/L BUN 11 (7.0-18.0) mg/dL Creatinine 0.9 (0.8-1.3) mg/dL Est Cr Clr Drug Dosing 102.75 mL/min Estimated GFR (MDRD) > 60.0 ml/min Glucose 83 (74-106) mg/dL Calcium 8.5 (8.5-10.1) mg/dL Total Bilirubin 1.6 H (0.2-1.0) mg/dL AST 38 H (15-37) IU/L ALT 64 H (14-63) IU/L Alkaline Phosphatase 95 (46-116) U/L Total Protein 5.8 L (6.4-8.2) g/dL Albumin 2.3 L (3.4-5.0) g/dL Globulin 3.5 (2.6-4.0) g/dL Albumin/Globulin Ratio 0.7 L (0.9-1.6) Med Orders - Current: Current Medications Hydrocodone Bitart/Acetaminophen ([place] 325-5 Mg) 2 tab PO Q4H PRN PRN Reason: Pain Bisacodyl (Dulcolax) 10 mg PO DAILY [facility] Cyclobenzaprine HCl (Flexeril) 5 mg PO TID PRN PRN Reason: Muscle Spasm Diphenhydramine HCl (Benadryl) 25 mg IVPUSH Q6H PRN PRN Reason: Itching Piperacillin Sod/Tazobactam (Sod 3.375 gm/ Sodium Chloride) 50 mls @ 100 mls/ hr IV Q6H [facility] Last Admin: 06/08/19 05:47 Dose: 100 mls/hr Ketorolac Tromethamine (Toradol) 30 mg IVPUSH Q6H PRN PRN Reason: Abdominal Pain Stop: 06/11/19 11:28 Last Admin: 06/06/19 11:46 Dose: 30 mg Morphine Sulfate (Morphine) 2 mg IVPUSH Q1H PRN PRN Reason: Pain (severe 7-10) Ondansetron HCl (Zofran) 4 mg IVPUSH Q6H PRN PRN Reason: Nausea/Vomiting Promethazine HCl (Phenergan) 25 mg IM Q6H PRN PRN Reason: Nausea Scopolamine (Transderm-Scop) 1.5 mg TRDERM Q72H PRN PRN Reason: Nausea Sodium Chloride (Saline Flush) 10 ml FLUSH ASDIRECTED PRN PRN Reason: Keep Vein Open Sodium Chloride (Saline Flush) 2.5 ml FLUSH ASDIRECTED PRN PRN Reason: Keep Vein Open Sodium Chloride (Saline Flush) 10 ml FLUSH ASDIRECTED PRN PRN Reason: Keep Vein Open Sodium Chloride (Saline Flush) 2.5 ml FLUSH ASDIRECTED PRN PRN Reason: Keep Vein Open Sodium Chloride (Normal Saline) 10 ml IV ASDIRECTED PRN PRN Reason: IV Use Discontinued Medications Albuterol (Proventil Neb Soln) 2.5 mg NEB ONETIME PRN PRN Reason: Wheezing Atropine Sulfate (Atropine 0.1 Mg/Ml) 0.5 mg IVPUSH ASDIRECTED PRN PRN Reason: Hypo-perfusion Atropine Sulfate (Atropine 0.1 Mg/Ml) 1 mg IVPUSH ASDIRECTED PRN PRN Reason: Hypo-Perfusion Bupivacaine HCl (Marcaine 0.5%) Confirm Administered Dose 120 ml .ROUTE .STK- MED ONE Stop: 06/07/19 09:31 Cefazolin Sodium (Ancef) Confirm Administered Dose 1 gm .ROUTE .STK-MED ONE Stop: 06/07/19 09:31 Dextrose/Water (Dextrose 50% In Water) 50 ml IVPUSH ASDIRECTED PRN PRN Reason: Hypoglycemia Diphenhydramine HCl (Benadryl) 25 mg IVPUSH Q4H PRN PRN Reason: Itching Diphenhydramine HCl (Benadryl) 25 mg PO Q6H PRN PRN Reason: Itching Ephedrine Sulfate (Ephedrine Sulfate) Confirm Administered Dose 50 mg .ROUTE .STK-MED ONE Stop: 06/07/19 09:50 Epinephrine HCl (Epinephrine 1:10,000) 1 mg IVPUSH ASDIRECTED PRN PRN Reason: ACLS Guidelines Fentanyl (Sublimaze) 50 - 100 mcg IVPUSH Q5M PRN PRN Reason: Pain Fentanyl (Sublimaze) Confirm Administered Dose 250 mcg .ROUTE .STK-MED ONE Stop: 06/07/19 09:49 Fentanyl (Sublimaze) 50 mcg IVPUSH Q5M PRN PRN Reason: Pain Glycopyrrolate (Robinul) Confirm Administered Dose 0.2 mg .ROUTE .STK-MED ONE Stop: 06/07/19 09:50 Hydromorphone HCl (Dilaudid) 1 mg IVPUSH ONETIME ONE Stop: 06/06/19 06:10 Last Admin: 06/06/19 06:16 Dose: 1 mg Hydromorphone HCl (Dilaudid) 0.5 mg IVPUSH Q1H PRN PRN Reason: Pain (severe 7-10) Last Admin: 06/06/19 09:34 Dose: 0.5 mg Hydromorphone HCl (Dilaudid) Confirm Administered Dose 2 mg .ROUTE .STK-MED ONE Stop: 06/07/19 10:48 Pantoprazole Sodium 80 mg/ (Sodium Chloride) 20 mls @ 420 mls/hr IVPUSH ONETIME ONE Stop: 06/06/19 04:38 Last Admin: 06/06/19 04:52 Dose: 420 mls/hr Sodium Chloride (Normal Saline) 1,000 mls @ 999 mls/hr IV STAT ONE Stop: 06/06/19 05:36 Last Admin: 06/06/19 04:45 Dose: 999 mls/hr Lactated Ringer's (Ringers, Lactated) 1,000 mls @ 150 mls/hr IV ASDIRECTED [facility] Last Infusion: 06/06/19 13:23 Dose: Infused Piperacillin Sod/Tazobactam (Sod 4.5 gm/ Sodium Chloride) 100 mls @ 100 mls/hr IV ONETIME ONE Stop: 06/06/19 07:15 Last Admin: 06/06/19 06:22 Dose: 100 mls/hr Lactated Ringer's (Ringers, Lactated) 1,000 mls @ 125 mls/hr IV Q8H [facility] Last Admin: 06/08/19 00:29 Dose: 125 mls/hr Iopamidol (Isovue Multipack-370 (76%)) 100 ml IVPUSH ONETIME ONE Stop: 06/06/19 05:33 Last Admin: 06/06/19 05:33 Dose: 100 ml Ketorolac Tromethamine (Toradol) 30 mg IVPUSH Q6H [facility] Stop: 06/11/19 12:32 Last Admin: 06/08/19 05:47 Dose: 30 mg Lidocaine (Xylocaine-Mpf 2%) Confirm Administered Dose 5 ml .ROUTE .STK-MED ONE Stop: 06/07/19 09:50 Midazolam HCl (Versed 1 Mg/Ml) Confirm Administered Dose 2 mg .ROUTE .STK-MED ONE Stop: 06/07/19 09:49 Morphine Sulfate (Morphine) 4 mg IVPUSH ONETIME ONE Stop: 06/06/19 04:37 Last Admin: 06/06/19 04:51 Dose: 4 mg Morphine Sulfate (Morphine Wrinkle Chaser 30 Mg In 30 Ml) 0 mg IV ASDIRECTED [facility]; Protocol Last Admin: 06/07/19 23:31 Dose: 30 mg Naloxone HCl (Narcan) 0.04 mg IVPUSH Q3M PRN PRN Reason: Respiratory Depression Naloxone HCl (Narcan) 0.1 mg IVPUSH ASDIRECTED PRN PRN Reason: Respiratory Depression Naloxone HCl (Narcan) Confirm Administered Dose 0.4 mg .ROUTE .STK-MED ONE Stop: 06/07/19 11:47 Omeprazole (Omeprazole) 20 mg PO ACBREAKFAST [facility] Last Admin: 06/08/19 06:38 Dose: 20 mg Ondansetron HCl (Zofran) 4 mg IVPUSH ONETIME ONE Stop: 06/06/19 04:38 Last Admin: 06/06/19 04:52 Dose: 4 mg Ondansetron HCl (Zofran) 4 mg IVPUSH Q6H PRN PRN Reason: Nausea/Vomiting Last Admin: 06/06/19 09:36 Dose: 4 mg Ondansetron HCl (Zofran) Confirm Administered Dose 4 mg .ROUTE .STK-MED ONE Stop: 06/07/19 09:50 Oxycodone/Acetaminophen (Percocet 325-5 Mg) 2 tab PO Q4H PRN PRN Reason: Pain (moderate 4-6) Last Admin: 06/06/19 10:41 Dose: 2 tab Phenylephrine HCl (Hugh-Synephrine) Confirm Administered Dose 10 mg .ROUTE .STK- MED ONE Stop: 06/07/19 09:45 Phenylephrine HCl (Phenylephrine In Ns 100 Mcg/Ml) Confirm Administered Dose 2 mg .ROUTE .STK-MED ONE Stop: 06/07/19 09:50 Propofol (Diprivan 20 Ml) Confirm Administered Dose 200 mg .ROUTE .STK-MED ONE Stop: 06/07/19 09:48 Rocuronium Valmora (Zemuron) Confirm Administered Dose 100 mg .ROUTE .STK-MED ONE Stop: 06/07/19 09:50 Succinylcholine Chloride (Succinylcholine Chloride) Confirm Administered Dose 200 mg .ROUTE .STK-MED ONE Stop: 06/07/19 09:50 Sugammadex Sodium (Bridion) Confirm Administered Dose 200 mg .ROUTE .STK-MED ONE Stop: 06/07/19 09:22 - Exam Wound/Incisions: Dressing Dry and Intact, Other (Drain with serosanguinous output ) General: Alert, Oriented, Cooperative HEENT: Pupils Equal, Pupils Reactive, EOMI, Mucous Membr. Moist/[place] Lungs: Normal Respiratory Effort Cardiovascular: Regular Rate GI/Abdominal Exam: Soft, Non-Tender, No Distention, No Mass Extremities: Normal Inspection Skin: Warm, Dry, Intact Neurological: No New Focal Deficit Psy/Mental Status: Alert, Normal Affect, Normal Mood Sepsis Event Note - Evaluation Sepsis Screening Result: No Definite Risk - Focused Exam Vital Signs: Vital Signs Temp Pulse Resp BP Pulse Ox 06/08/19 06:00 84 20 123/75 95 06/08/19 05:00 81 19 111/69 95 06/08/19 04:00 82 18 111/69 95 06/08/19 03:00 81 18 112/66 95 06/08/19 02:00 36.7 C 85 19 109/66 94 L 06/08/19 01:00 86 18 103/69 92 L 06/08/19 00:00 87 19 108/65 92 L 06/07/19 23:00 37.1 C 85 14 111/71 93 L 06/07/19 22:00 94 16 115/72 94 L 06/07/19 21:00 92 18 116/71 95 Date Exam was Performed: 06/08/19 Time Exam was Performed: 08:44 - Problem List & Annotations (1) Cholecystitis SNOMED Code(s): 29582125 Code(s): K81.9 - CHOLECYSTITIS, UNSPECIFIED Status: Acute Current Visit: Yes - Problem List Review Problem List Initiated/Reviewed/Updated: Yes - My Orders Last 24 Hours: Active Orders 24 hr Category Date Time Status Patient Status [ADT] Routine ADT 06/07/19 11:54 Active Transfer Patient (Change bed) [ADT] Routine ADT 06/08/19 07:37 Ordered Blood Glucose Check, Bedside [RC] PRN Care 06/07/19 09:38 Active Cardiac Monitoring [RC] Q8H Care 06/07/19 11:53 Active Communication Order [RC] PER UNIT ROUTINE Care 06/07/19 13:44 Active Notify Provider Vital Signs [RC] ASDIRECTED Care 06/07/19 09:38 Active RT Aerosol Therapy [RC] ASDIRECTED Care 06/07/19 09:38 Active Vital Signs [RC] Q5M Care 06/07/19 09:38 Active Regular Diet [DIET] Diet 06/08/19 Breakfast Active CMP [COMPREHENSIVE METABOLIC PN,CMP] [CHEM] AM Lab 06/09/19 05:11 Ordered Acetaminophen/HYDROcodone [[place] 325-5 MG] Med 06/08/19 07:34 Active 2 tab PO Q4H PRN Cyclobenzaprine [Flexeril] Med 06/08/19 07:36 Active 5 mg PO TID PRN Morphine Med 06/08/19 07:35 Active 2 mg IVPUSH Q1H PRN bisacodyL [Dulcolax] Med 06/08/19 09:00 Active 10 mg PO DAILY Medication Orders Hydrocodone Bitart/Acetaminophen ([place] 325-5 Mg) 2 tab PO Q4H PRN PRN Reason: Pain Bisacodyl (Dulcolax) 10 mg PO DAILY [facility] Cyclobenzaprine HCl (Flexeril) 5 mg PO TID PRN PRN Reason: Muscle Spasm Diphenhydramine HCl (Benadryl) 25 mg IVPUSH Q6H PRN PRN Reason: Itching Piperacillin Sod/Tazobactam (Sod 3.375 gm/ Sodium Chloride) 50 mls @ 100 mls/ hr IV Q6H [facility] Last Admin: 06/08/19 05:47 Dose: 100 mls/hr Infusion: 06/08/19 00:08 Dose: 100 mls/hr Admin: 06/07/19 23:38 Dose: 100 mls/hr Infusion: 06/07/19 18:17 Dose: 100 mls/hr Admin: 06/07/19 17:47 Dose: 100 mls/hr Infusion: 06/07/19 12:58 Dose: 100 mls/hr Admin: 06/07/19 12:28 Dose: 100 mls/hr Infusion: 06/07/19 07:22 Dose: 100 mls/hr Admin: 06/07/19 06:52 Dose: 100 mls/hr Infusion: 06/07/19 00:12 Dose: 100 mls/hr Admin: 06/06/19 23:42 Dose: 100 mls/hr Infusion: 06/06/19 18:55 Dose: 100 mls/hr Admin: 06/06/19 18:25 Dose: 100 mls/hr Infusion: 06/06/19 12:22 Dose: 100 mls/hr Admin: 06/06/19 11:52 Dose: 100 mls/hr Ketorolac Tromethamine (Toradol) 30 mg IVPUSH Q6H PRN PRN Reason: Abdominal Pain Stop: 06/11/19 11:28 Last Admin: 06/06/19 11:46 Dose: 30 mg Morphine Sulfate (Morphine) 2 mg IVPUSH Q1H PRN PRN Reason: Pain (severe 7-10) Ondansetron HCl (Zofran) 4 mg IVPUSH Q6H PRN PRN Reason: Nausea/Vomiting Promethazine HCl (Phenergan) 25 mg IM Q6H PRN PRN Reason: Nausea Scopolamine (Transderm-Scop) 1.5 mg TRDERM Q72H PRN PRN Reason: Nausea Sodium Chloride (Saline Flush) 10 ml FLUSH ASDIRECTED PRN PRN Reason: Keep Vein Open Sodium Chloride (Saline Flush) 2.5 ml FLUSH ASDIRECTED PRN PRN Reason: Keep Vein Open Sodium Chloride (Saline Flush) 10 ml FLUSH ASDIRECTED PRN PRN Reason: Keep Vein Open Sodium Chloride (Saline Flush) 2.5 ml FLUSH ASDIRECTED PRN PRN Reason: Keep Vein Open Sodium Chloride (Normal Saline) 10 ml IV ASDIRECTED PRN PRN Reason: IV Use - Plan Plan (Free Text/Narrative):: Pain: D/C Morphine [employer]. [place] prn pain. IV morphine prn severe pain. Flexeril for muscle spasms CV/Pulm: Stable. D/C cardiac and respiratory monitor. Encourage IS use and OOB activity. GI: Advance diet to regular. Bilirubin decreasing. No signs of bile leak through RUQ drain. Renal: UOP adequate. D/C IVF. BUN/Cr WNL ID: WBC down to 15K. Continue IV zosyn for today. Heme: Decreased due to intraoperative blood loss. Continue to monitor. Px: SCDs, no need for GI. Transfer to floor.
[2019-06-08] MEDS: Acetaminophen/HYDROcodone 325-5 MG Tab PO PRN ×3 (09:08→19:15)
[2019-06-08] MEDS: Bisacodyl 5 MG Tab PO SCH (09:08)
--- NOTE | 2019-06-08 12:08 | PCM48HPAN ---
Post Anesthesia Note - EVALUATION WITHIN 48HRS OF ANESTHETIC Vital Signs in Normal Range: Yes Patient Participated in Evaluation: Yes Respiratory Function Stable: Yes Airway Patent: Yes Cardiovascular Function Stable: Yes Hydration Status Stable: Yes Pain Control Satisfactory: Yes Nausea and Vomiting Control Satisfactory: Yes Mental Status Recovered: Yes Vital Signs: Last Vital Signs Temp 98 F 06/08/19 09:00 Pulse 86 06/08/19 09:00 Resp 15 06/08/19 09:00 BP 115/81 06/08/19 09:00 Pulse Ox 95 06/08/19 09:00
[2019-06-09] MEDS: Piperacillin/Tazobactam 3.375 GM in Sodium Chloride 0.9% 50 ML IV SCH (05:11)
[2019-06-09] MEDS: Ketorolac 30 MG/ML SDV IVPUSH PRN (06:10)
[2019-06-09 06:46] LABS: BLOOD UREA NITROGEN,BUN 9 mg/dL (7.0-18.0); CARBON DIOXIDE,CO2 27.3 mmol/L (21.0-32.0); CHLORIDE,CL 100 mmol/L (98-107); GLUCOSE RANDOM 93 mg/dL (74-106); POTASSIUM,K 3.6 mmol/L (3.5-5.1); SODIUM,NA 136 mmol/L (136-148)
[2019-06-09] MEDS ORDERED: Acetaminophen/oxyCODONE 325-5 MG Tab PO PRN (08:35)
--- NOTE | 2019-06-09 09:09 | PCM.SURGPN ---
- General Info Date of Service: 06/09/19 Date of Surgery/Procedure: 06/07/19 POD#: 2 Functional Status: Reports: Pain Controlled, Tolerating Diet, Ambulating, Urinating, Incentive Spirometry, Other (Having vivid dreams with norco). Denies : New Symptoms - Review of Systems General: Reports: No Symptoms HEENT: Reports: No Symptoms Pulmonary: Reports: No Symptoms Cardiovascular: Reports: No Symptoms Gastrointestinal: Reports: Abdominal Pain (RUQ), Constipation, Flatus Genitourinary: Reports: No Symptoms Musculoskeletal: Reports: No Symptoms Skin: Reports: No Symptoms - Patient Data Vitals - Most Recent: Last Vital Signs Temp 36.6 C 06/09/19 07:40 Pulse 91 06/09/19 07:40 Resp 18 06/09/19 07:40 BP 136/86 06/09/19 07:40 Pulse Ox 94 L 06/09/19 07:40 Weight - Most Recent: 90.038 kg I&O - Last 24 Hours: Intake & Output 06/08/19 06/09/19 06/09/19 22:59 06:59 14:59 Intake Total 850 1400 Output Total 525 1605 Balance 325 -205 Lab Results Last 24 Hrs: Laboratory Results - last 24 hr 06/09/19 06/09/19 Range/Units 06:00 06:00 WBC 12.61 H (4.0-11.0) K/uL RBC 4.62 (4.50-5.90) M/uL Hgb 13.2 (13.0-17.0) g/dL Hct 40.0 (38.0-50.0) % MCV 86.6 (80.0-98.0) fL MCH 28.6 (27.0-32.0) pg MCHC 33.0 (31.0-37.0) g/dL RDW Std Deviation 43.0 (28.0-62.0) fl RDW Coeff of Abhishek 14 (11.0-15.0) % Plt Count 293 (150-400) K/uL MPV 9.80 (7.40-12.00) fL Nucleated RBC % 0.0 /100WBC Nucleated RBCs # 0 K/uL Sodium 136 (136-148) mmol/L Potassium 3.6 (3.5-5.1) mmol/L Chloride 100 (98-107) mmol/L Carbon Dioxide 27.3 (21.0-32.0) mmol/L BUN 9 (7.0-18.0) mg/dL Creatinine 0.8 (0.8-1.3) mg/dL Est Cr Clr Drug Dosing 115.59 mL/min Estimated GFR (MDRD) > 60.0 ml/min Glucose 93 (74-106) mg/dL Calcium 8.8 (8.5-10.1) mg/dL Total Bilirubin 1.2 H (0.2-1.0) mg/dL AST 28 (15-37) IU/L ALT 49 (14-63) IU/L Alkaline Phosphatase 99 (46-116) U/L Total Protein 6.8 (6.4-8.2) g/dL Albumin 2.6 L (3.4-5.0) g/dL Globulin 4.2 H (2.6-4.0) g/dL Albumin/Globulin Ratio 0.6 L (0.9-1.6) Med Orders - Current: Current Medications Bisacodyl (Dulcolax) 10 mg PO DAILY [facility] Last Admin: 06/08/19 09:08 Dose: 10 mg Cyclobenzaprine HCl (Flexeril) 5 mg PO TID PRN PRN Reason: Muscle Spasm Last Admin: 06/09/19 03:23 Dose: 5 mg Diphenhydramine HCl (Benadryl) 25 mg IVPUSH Q6H PRN PRN Reason: Itching Ketorolac Tromethamine (Toradol) 10 mg PO Q6H [facility] Stop: 06/14/19 08:46 Morphine Sulfate (Morphine) 2 mg IVPUSH Q1H PRN PRN Reason: Pain (severe 7-10) Ondansetron HCl (Zofran) 4 mg IVPUSH Q6H PRN PRN Reason: Nausea/Vomiting Oxycodone/Acetaminophen (Percocet 325-5 Mg) 2 tab PO Q4H PRN PRN Reason: Pain (moderate 4-6) Polyethylene Glycol (Miralax) 17 gm PO BID [facility] Promethazine HCl (Phenergan) 25 mg IM Q6H PRN PRN Reason: Nausea Scopolamine (Transderm-Scop) 1.5 mg TRDERM Q72H PRN PRN Reason: Nausea Sodium Chloride (Saline Flush) 10 ml FLUSH ASDIRECTED PRN PRN Reason: Keep Vein Open Sodium Chloride (Saline Flush) 2.5 ml FLUSH ASDIRECTED PRN PRN Reason: Keep Vein Open Sodium Chloride (Saline Flush) 10 ml FLUSH ASDIRECTED PRN PRN Reason: Keep Vein Open Sodium Chloride (Saline Flush) 2.5 ml FLUSH ASDIRECTED PRN PRN Reason: Keep Vein Open Sodium Chloride (Normal Saline) 10 ml IV ASDIRECTED PRN PRN Reason: IV Use Discontinued Medications Hydrocodone Bitart/Acetaminophen ([place] 325-5 Mg) 2 tab PO Q4H PRN PRN Reason: Pain Last Admin: 06/08/19 19:15 Dose: 2 tab Albuterol (Proventil Neb Soln) 2.5 mg NEB ONETIME PRN PRN Reason: Wheezing Atropine Sulfate (Atropine 0.1 Mg/Ml) 0.5 mg IVPUSH ASDIRECTED PRN PRN Reason: Hypo-perfusion Atropine Sulfate (Atropine 0.1 Mg/Ml) 1 mg IVPUSH ASDIRECTED PRN PRN Reason: Hypo-Perfusion Bupivacaine HCl (Marcaine 0.5%) Confirm Administered Dose 120 ml .ROUTE .STK- MED ONE Stop: 06/07/19 09:31 Cefazolin Sodium (Ancef) Confirm Administered Dose 1 gm .ROUTE .STK-MED ONE Stop: 06/07/19 09:31 Dextrose/Water (Dextrose 50% In Water) 50 ml IVPUSH ASDIRECTED PRN PRN Reason: Hypoglycemia Diphenhydramine HCl (Benadryl) 25 mg IVPUSH Q4H PRN PRN Reason: Itching Diphenhydramine HCl (Benadryl) 25 mg PO Q6H PRN PRN Reason: Itching Ephedrine Sulfate (Ephedrine Sulfate) Confirm Administered Dose 50 mg .ROUTE .STK-MED ONE Stop: 06/07/19 09:50 Epinephrine HCl (Epinephrine 1:10,000) 1 mg IVPUSH ASDIRECTED PRN PRN Reason: ACLS Guidelines Fentanyl (Sublimaze) 50 - 100 mcg IVPUSH Q5M PRN PRN Reason: Pain Fentanyl (Sublimaze) Confirm Administered Dose 250 mcg .ROUTE .STK-MED ONE Stop: 06/07/19 09:49 Fentanyl (Sublimaze) 50 mcg IVPUSH Q5M PRN PRN Reason: Pain Glycopyrrolate (Robinul) Confirm Administered Dose 0.2 mg .ROUTE .STK-MED ONE Stop: 06/07/19 09:50 Hydromorphone HCl (Dilaudid) 1 mg IVPUSH ONETIME ONE Stop: 06/06/19 06:10 Last Admin: 06/06/19 06:16 Dose: 1 mg Hydromorphone HCl (Dilaudid) 0.5 mg IVPUSH Q1H PRN PRN Reason: Pain (severe 7-10) Last Admin: 06/06/19 09:34 Dose: 0.5 mg Hydromorphone HCl (Dilaudid) Confirm Administered Dose 2 mg .ROUTE .STK-MED ONE Stop: 06/07/19 10:48 Pantoprazole Sodium 80 mg/ (Sodium Chloride) 20 mls @ 420 mls/hr IVPUSH ONETIME ONE Stop: 06/06/19 04:38 Last Admin: 06/06/19 04:52 Dose: 420 mls/hr Sodium Chloride (Normal Saline) 1,000 mls @ 999 mls/hr IV STAT ONE Stop: 06/06/19 05:36 Last Admin: 06/06/19 04:45 Dose: 999 mls/hr Lactated Ringer's (Ringers, Lactated) 1,000 mls @ 150 mls/hr IV ASDIRECTED [facility] Last Infusion: 06/06/19 13:23 Dose: Infused Piperacillin Sod/Tazobactam (Sod 4.5 gm/ Sodium Chloride) 100 mls @ 100 mls/hr IV ONETIME ONE Stop: 06/06/19 07:15 Last Admin: 06/06/19 06:22 Dose: 100 mls/hr Lactated Ringer's (Ringers, Lactated) 1,000 mls @ 125 mls/hr IV Q8H [facility] Last Admin: 06/08/19 00:29 Dose: 125 mls/hr Piperacillin Sod/Tazobactam (Sod 3.375 gm/ Sodium Chloride) 50 mls @ 100 mls/ hr IV Q6H [facility] Last Admin: 06/09/19 05:11 Dose: 100 mls/hr Iopamidol (Isovue Multipack-370 (76%)) 100 ml IVPUSH ONETIME ONE Stop: 06/06/19 05:33 Last Admin: 06/06/19 05:33 Dose: 100 ml Ketorolac Tromethamine (Toradol) 30 mg IVPUSH Q6H PRN PRN Reason: Abdominal Pain Stop: 06/11/19 11:28 Last Admin: 06/09/19 06:10 Dose: 30 mg Ketorolac Tromethamine (Toradol) 30 mg IVPUSH Q6H [facility] Stop: 06/11/19 12:32 Last Admin: 06/08/19 05:47 Dose: 30 mg Lidocaine (Xylocaine-Mpf 2%) Confirm Administered Dose 5 ml .ROUTE .STK-MED ONE Stop: 06/07/19 09:50 Midazolam HCl (Versed 1 Mg/Ml) Confirm Administered Dose 2 mg .ROUTE .STK-MED ONE Stop: 06/07/19 09:49 Morphine Sulfate (Morphine) 4 mg IVPUSH ONETIME ONE Stop: 06/06/19 04:37 Last Admin: 06/06/19 04:51 Dose: 4 mg Morphine Sulfate (Morphine Sorting Machine Operator 30 Mg In 30 Ml) 0 mg IV ASDIRECTED [facility] ELE[facility]; Protocol Last Admin: 06/07/19 23:31 Dose: 30 mg Naloxone HCl (Narcan) 0.04 mg IVPUSH Q3M PRN PRN Reason: Respiratory Depression Naloxone HCl (Narcan) 0.1 mg IVPUSH ASDIRECTED PRN PRN Reason: Respiratory Depression Naloxone HCl (Narcan) Confirm Administered Dose 0.4 mg .ROUTE .STK-MED ONE Stop: 06/07/19 11:47 Omeprazole (Omeprazole) 20 mg PO ACBREAKFAST [facility] Last Admin: 06/08/19 06:38 Dose: 20 mg Ondansetron HCl (Zofran) 4 mg IVPUSH ONETIME ONE Stop: 06/06/19 04:38 Last Admin: 06/06/19 04:52 Dose: 4 mg Ondansetron HCl (Zofran) 4 mg IVPUSH Q6H PRN PRN Reason: Nausea/Vomiting Last Admin: 06/06/19 09:36 Dose: 4 mg Ondansetron HCl (Zofran) Confirm Administered Dose 4 mg .ROUTE .STK-MED ONE Stop: 06/07/19 09:50 Oxycodone/Acetaminophen (Percocet 325-5 Mg) 2 tab PO Q4H PRN PRN Reason: Pain (moderate 4-6) Last Admin: 06/06/19 10:41 Dose: 2 tab Phenylephrine HCl (Hugh-Synephrine) Confirm Administered Dose 10 mg .ROUTE .STK- MED ONE Stop: 06/07/19 09:45 Phenylephrine HCl (Phenylephrine In Ns 100 Mcg/Ml) Confirm Administered Dose 2 mg .ROUTE .STK-MED ONE Stop: 06/07/19 09:50 Propofol (Diprivan 20 Ml) Confirm Administered Dose 200 mg .ROUTE .STK-MED ONE Stop: 06/07/19 09:48 Rocuronium [place] (Zemuron) Confirm Administered Dose 100 mg .ROUTE .STK-MED ONE Stop: 06/07/19 09:50 Succinylcholine Chloride (Succinylcholine Chloride) Confirm Administered Dose 200 mg .ROUTE .STK-MED ONE Stop: 06/07/19 09:50 Sugammadex Sodium ([place]) Confirm Administered Dose 200 mg .ROUTE .STK-MED ONE Stop: 06/07/19 09:22 - Exam Wound/Incisions: Healing Well Quality Assessment: Supplemental Oxygen General: Alert, Oriented HEENT: Pupils Equal, Pupils Reactive Lungs: Normal Respiratory Effort Cardiovascular: Regular Rate GI/Abdominal Exam: Soft, Non-Tender, No Distention, No Mass Skin: Warm, Dry, Intact Psy/Mental Status: Alert, Normal Affect, Normal Mood Sepsis Event Note - Evaluation Sepsis Screening Result: No Definite Risk - Focused Exam Vital Signs: Vital Signs Temp Pulse Resp BP Pulse Ox 06/09/19 07:40 36.6 C 91 18 136/86 94 L 06/09/19 03:36 36.8 C 92 16 147/85 H 91 L 06/08/19 23:21 37.3 C 94 20 149/79 H 93 L Date Exam was Performed: 06/09/19 Time Exam was Performed: 09:02 - Problem List & Annotations (1) Cholecystitis SNOMED Code(s): 15509705 Code(s): K81.9 - CHOLECYSTITIS, UNSPECIFIED Status: Acute Current Visit: Yes - Problem List Review Problem List Initiated/Reviewed/Updated: Yes - My Orders Last 24 Hours: Active Orders 24 hr Category Date Time Status CBC W/O DIFF,HEMOGRAM [HEME] Routine Lab 06/09/19 17:00 Ordered Acetaminophen/oxyCODONE [Percocet 325-5 MG] Med 06/09/19 08:35 Active 2 tab PO Q4H PRN Ketorolac [Toradol] Med 06/09/19 08:45 Active 10 mg PO Q6H Polyethylene Glycol 3350 [MiraLAX] Med 06/09/19 09:15 Ordered 17 gm PO BID bisacodyL [Dulcolax] Med 06/08/19 09:00 Active 10 mg PO DAILY Medication Orders Bisacodyl (Dulcolax) 10 mg PO DAILY [facility] Last Admin: 06/08/19 09:08 Dose: 10 mg Cyclobenzaprine HCl (Flexeril) 5 mg PO TID PRN PRN Reason: Muscle Spasm Last Admin: 06/09/19 03:23 Dose: 5 mg Diphenhydramine HCl (Benadryl) 25 mg IVPUSH Q6H PRN PRN Reason: Itching Ketorolac Tromethamine (Toradol) 10 mg PO Q6H [facility] Stop: 06/14/19 08:46 Morphine Sulfate (Morphine) 2 mg IVPUSH Q1H PRN PRN Reason: Pain (severe 7-10) Ondansetron HCl (Zofran) 4 mg IVPUSH Q6H PRN PRN Reason: Nausea/Vomiting Oxycodone/Acetaminophen (Percocet 325-5 Mg) 2 tab PO Q4H PRN PRN Reason: Pain (moderate 4-6) Polyethylene Glycol (Miralax) 17 gm PO BID [facility] Promethazine HCl (Phenergan) 25 mg IM Q6H PRN PRN Reason: Nausea Scopolamine (Transderm-Scop) 1.5 mg TRDERM Q72H PRN PRN Reason: Nausea Sodium Chloride (Saline Flush) 10 ml FLUSH ASDIRECTED PRN PRN Reason: Keep Vein Open Sodium Chloride (Saline Flush) 2.5 ml FLUSH ASDIRECTED PRN PRN Reason: Keep Vein Open Sodium Chloride (Saline Flush) 10 ml FLUSH ASDIRECTED PRN PRN Reason: Keep Vein Open Sodium Chloride (Saline Flush) 2.5 ml FLUSH ASDIRECTED PRN PRN Reason: Keep Vein Open Sodium Chloride (Normal Saline) 10 ml IV ASDIRECTED PRN PRN Reason: IV Use - Plan Plan (Free Text/Narrative):: -Will switch patient from norco to percocet. D/C IV toradol and start po. -Will d/c zosyn. He is afebrile and wbc is almost normal. I do not think the elevated WBC is from an intra-abdominal infection. I believe it is from severe inflammation. We have source control. Will recheck CBC this afternoon -Drain with scant serous output. Remove today. -Miralax to help patient have BM Will recheck this afternoon and potential D/C tonight or tomorrow morning.
[2019-06-09] MEDS ORDERED: Polyethylene Glycol 3350 Powder 17 GM Packet PO SCH (09:15)
[2019-06-09] MEDS: Bisacodyl 5 MG Tab PO SCH (09:27)
[2019-06-09] MEDS: Ketorolac 10 MG Tab PO SCH ×2 (09:27→14:18)
--- NOTE | 2019-06-09 17:44 | PCM.DCSUM1 ---
Discharge Summary - Hospital Course Free Text/Narrative:: Patient is a 58-year-old male who presented with severe right upper quadrant pain. Workup in the emergency room revealed an acutely inflamed and enlarged gallbladder. He was admitted to the hospital and given IV fluids, IV antibiotics , his sternal clear liquid diet. His pain worsened throughout the day. He was switched to Toradol and IV morphine which better controlled his pain. The next morning the patient had an elevated bilirubin and his white count had gone from 14,000 to 20,000. His blood pressure had dropped his heart rate had risen as well. An MRCP was performed to rule out choledocholithiasis. This showed severe inflammation around the gallbladder but no evidence of choledocholithiasis. He is taken to the operating room for an open cholecystectomy. He is found to have gangrenous cholecystitis. He did well in the postoperative period. His vital signs improved. 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 He was switched to oral [place]. This gave him vivid nightmares, so he was switched over to Percocet with better results. He was kept on Toradol with excellent control of his pain. His drain had minimal output and was removed on postop day 2. His diet was advanced without difficulty. His white blood count came down slowly over the course of the 2 postoperative days he was in the hospital. His IV antibiotics were discontinued on postop day 2. I ordered a CBC at the end of postop day 2 and his white count was within normal limits. He had a bowel movement on this day. He was cleared for discharge. - Discharge Data Discharge Date: 06/09/19 Discharge Disposition: Home, Self-Care 01 Condition: Good - Referral to Home Health Primary Care Physician: PCP None - Patient Summary/Data Operative Procedure(s) Performed: Open cholecystectomy - Discharge Plan Home Medications: Home Meds . [No Known Home Meds] 06/06/19 [History] Patient Handouts: Open Cholecystectomy, Care After, Acetaminophen; Oxycodone tablets, Ketorolac tablets Referrals: Tameka Veliz MD [Physician] - - Discharge Summary/Plan Comment DC Time >30 min.: No - General Info Functional Status: Reports: Pain Controlled, Tolerating Diet, Ambulating, Urinating. Denies: New Symptoms - Review of Systems General: Reports: No Symptoms HEENT: Reports: No Symptoms Pulmonary: Reports: No Symptoms Cardiovascular: Reports: No Symptoms Gastrointestinal: Reports: No Symptoms Genitourinary: Reports: No Symptoms Musculoskeletal: Reports: No Symptoms - Patient Data Vitals - Most Recent: Last Vital Signs Temp 37.1 C 06/09/19 16:00 Pulse 89 06/09/19 16:00 Resp 16 06/09/19 16:00 BP 143/92 H 06/09/19 16:00 Pulse Ox 94 L 06/09/19 16:00 Weight - Most Recent: 90.038 kg I&O - Last 24 hours: Intake & Output 06/09/19 06/09/19 06/09/19 06:59 14:59 22:59 Intake Total 1400 Output Total 1605 Balance -205 Lab Results - Last 24 hrs: Laboratory Results - last 24 hr 06/09/19 06/09/19 06/09/19 Range/Units 06:00 06:00 16:58 WBC 12.61 H 10.40 (4.0-11.0) K/uL RBC 4.62 4.49 L (4.50-5.90) M/uL Hgb 13.2 12.9 L (13.0-17.0) g/dL Hct 40.0 38.9 (38.0-50.0) % MCV 86.6 86.6 (80.0-98.0) fL MCH 28.6 28.7 (27.0-32.0) pg MCHC 33.0 33.2 (31.0-37.0) g/dL RDW Std Deviation 43.0 42.7 (28.0-62.0) fl RDW Coeff of Abhishek 14 14 (11.0-15.0) % Plt Count 293 319 (150-400) K/uL MPV 9.80 9.60 (7.40-12.00) fL Nucleated RBC % 0.0 0.0 /100WBC Nucleated RBCs # 0 0 K/uL Sodium 136 (136-148) mmol/L Potassium 3.6 (3.5-5.1) mmol/L Chloride 100 (98-107) mmol/L Carbon Dioxide 27.3 (21.0-32.0) mmol/L BUN 9 (7.0-18.0) mg/dL Creatinine 0.8 (0.8-1.3) mg/dL Est Cr Clr Drug Dosing 115.59 mL/min Estimated GFR (MDRD) > 60.0 ml/min Glucose 93 (74-106) mg/dL Calcium 8.8 (8.5-10.1) mg/dL Total Bilirubin 1.2 H (0.2-1.0) mg/dL AST 28 (15-37) IU/L ALT 49 (14-63) IU/L Alkaline Phosphatase 99 (46-116) U/L Total Protein 6.8 (6.4-8.2) g/dL Albumin 2.6 L (3.4-5.0) g/dL Globulin 4.2 H (2.6-4.0) g/dL Albumin/Globulin Ratio 0.6 L (0.9-1.6) Med Orders - Current: Current Medications Bisacodyl (Dulcolax) 10 mg PO DAILY [facility] Last Admin: 06/09/19 09:27 Dose: 10 mg Cyclobenzaprine HCl (Flexeril) 5 mg PO TID PRN PRN Reason: Muscle Spasm Last Admin: 06/09/19 03:23 Dose: 5 mg Diphenhydramine HCl (Benadryl) 25 mg IVPUSH Q6H PRN PRN Reason: Itching Ketorolac Tromethamine (Toradol) 10 mg PO Q6H [facility]CLUDES [facility] Stop: 06/14/19 08:46 Last Admin: 06/09/19 14:18 Dose: 10 mg Morphine Sulfate (Morphine) 2 mg IVPUSH Q1H PRN PRN Reason: Pain (severe 7-10) Ondansetron HCl (Zofran) 4 mg IVPUSH Q6H PRN PRN Reason: Nausea/Vomiting Oxycodone/Acetaminophen (Percocet 325-5 Mg) 2 tab PO Q4H PRN PRN Reason: Pain (moderate 4-6) Last Admin: 06/09/19 16:10 Dose: 2 tab Polyethylene Glycol (Miralax) 17 gm PO BID COUNT [facility]CLUD[facility] Last Admin: 06/09/19 09:33 Dose: 17 gm Promethazine HCl (Phenergan) 25 mg IM Q6H PRN PRN Reason: Nausea Scopolamine (Transderm-Scop) 1.5 mg TRDERM Q72H PRN PRN Reason: Nausea Sodium Chloride (Saline Flush) 10 ml FLUSH ASDIRECTED PRN PRN Reason: Keep Vein Open Sodium Chloride (Saline Flush) 2.5 ml FLUSH ASDIRECTED PRN PRN Reason: Keep Vein Open Sodium Chloride (Saline Flush) 10 ml FLUSH ASDIRECTED PRN PRN Reason: Keep Vein Open Sodium Chloride (Saline Flush) 2.5 ml FLUSH ASDIRECTED PRN PRN Reason: Keep Vein Open Sodium Chloride (Normal Saline) 10 ml IV ASDIRECTED PRN PRN Reason: IV Use Discontinued Medications Hydrocodone Bitart/Acetaminophen ([place] 325-5 Mg) 2 tab PO Q4H PRN PRN Reason: Pain Last Admin: 06/08/19 19:15 Dose: 2 tab Albuterol (Proventil Neb Soln) 2.5 mg NEB ONETIME PRN PRN Reason: Wheezing Atropine Sulfate (Atropine 0.1 Mg/Ml) 0.5 mg IVPUSH ASDIRECTED PRN PRN Reason: Hypo-perfusion Atropine Sulfate (Atropine 0.1 Mg/Ml) 1 mg IVPUSH ASDIRECTED PRN PRN Reason: Hypo-Perfusion Bupivacaine HCl (Marcaine 0.5%) Confirm Administered Dose 120 ml .ROUTE .STK- MED ONE Stop: 06/07/19 09:31 Cefazolin Sodium (Ancef) Confirm Administered Dose 1 gm .ROUTE .STK-MED ONE Stop: 06/07/19 09:31 Dextrose/Water (Dextrose 50% In Water) 50 ml IVPUSH ASDIRECTED PRN PRN Reason: Hypoglycemia Diphenhydramine HCl (Benadryl) 25 mg IVPUSH Q4H PRN PRN Reason: Itching Diphenhydramine HCl (Benadryl) 25 mg PO Q6H PRN PRN Reason: Itching Ephedrine Sulfate (Ephedrine Sulfate) Confirm Administered Dose 50 mg .ROUTE .STK-MED ONE Stop: 06/07/19 09:50 Epinephrine HCl (Epinephrine 1:10,000) 1 mg IVPUSH ASDIRECTED PRN PRN Reason: ACLS Guidelines Fentanyl (Sublimaze) 50 - 100 mcg IVPUSH Q5M PRN PRN Reason: Pain Fentanyl (Sublimaze) Confirm Administered Dose 250 mcg .ROUTE .STK-MED ONE Stop: 06/07/19 09:49 Fentanyl (Sublimaze) 50 mcg IVPUSH Q5M PRN PRN Reason: Pain Glycopyrrolate (Robinul) Confirm Administered Dose 0.2 mg .ROUTE .STK-MED ONE Stop: 06/07/19 09:50 Hydromorphone HCl (Dilaudid) 1 mg IVPUSH ONETIME ONE Stop: 06/06/19 06:10 Last Admin: 06/06/19 06:16 Dose: 1 mg Hydromorphone HCl (Dilaudid) 0.5 mg IVPUSH Q1H PRN PRN Reason: Pain (severe 7-10) Last Admin: 06/06/19 09:34 Dose: 0.5 mg Hydromorphone HCl (Dilaudid) Confirm Administered Dose 2 mg .ROUTE .STK-MED ONE Stop: 06/07/19 10:48 Pantoprazole Sodium 80 mg/ (Sodium Chloride) 20 mls @ 420 mls/hr IVPUSH ONETIME ONE Stop: 06/06/19 04:38 Last Admin: 06/06/19 04:52 Dose: 420 mls/hr Sodium Chloride (Normal Saline) 1,000 mls @ 999 mls/hr IV STAT ONE Stop: 06/06/19 05:36 Last Admin: 06/06/19 04:45 Dose: 999 mls/hr Lactated Ringer's (Ringers, Lactated) 1,000 mls @ 150 mls/hr IV ASDIRECTED COUNT INCLUDES [facility] Last Infusion: 06/06/19 13:23 Dose: Infused Piperacillin Sod/Tazobactam (Sod 4.5 gm/ Sodium Chloride) 100 mls @ 100 mls/hr IV ONETIME ONE Stop: 06/06/19 07:15 Last Admin: 06/06/19 06:22 Dose: 100 mls/hr Lactated Ringer's (Ringers, Lactated) 1,000 mls @ 125 mls/hr IV Q8H COUNT INCLUDES [facility] Last Admin: 06/08/19 00:29 Dose: 125 mls/hr Piperacillin Sod/Tazobactam (Sod 3.375 gm/ Sodium Chloride) 50 mls @ 100 mls/ hr IV Q6H [facility] Last Admin: 06/09/19 05:11 Dose: 100 mls/hr Iopamidol (Isovue Multipack-370 (76%)) 100 ml IVPUSH ONETIME ONE Stop: 06/06/19 05:33 Last Admin: 06/06/19 05:33 Dose: 100 ml Ketorolac Tromethamine (Toradol) 30 mg IVPUSH Q6H PRN PRN Reason: Abdominal Pain Stop: 06/11/19 11:28 Last Admin: 06/09/19 06:10 Dose: 30 mg Ketorolac Tromethamine (Toradol) 30 mg IVPUSH Q6H [facility] Stop: 06/11/19 12:32 Last Admin: 06/08/19 05:47 Dose: 30 mg Lidocaine (Xylocaine-Mpf 2%) Confirm Administered Dose 5 ml .ROUTE .STK-MED ONE Stop: 06/07/19 09:50 Midazolam HCl (Versed 1 Mg/Ml) Confirm Administered Dose 2 mg .ROUTE .STK-MED ONE Stop: 06/07/19 09:49 Morphine Sulfate (Morphine) 4 mg IVPUSH ONETIME ONE Stop: 06/06/19 04:37 Last Admin: 06/06/19 04:51 Dose: 4 mg Morphine Sulfate (Morphine Machine Operator General 30 Mg In 30 Ml) 0 mg IV ASDIRECTED [facility]; Protocol Last Admin: 06/07/19 23:31 Dose: 30 mg Naloxone HCl (Narcan) 0.04 mg IVPUSH Q3M PRN PRN Reason: Respiratory Depression Naloxone HCl (Narcan) 0.1 mg IVPUSH ASDIRECTED PRN PRN Reason: Respiratory Depression Naloxone HCl (Narcan) Confirm Administered Dose 0.4 mg .ROUTE .STK-MED ONE Stop: 06/07/19 11:47 Omeprazole (Omeprazole) 20 mg PO ACBREAKFAST COUNT INCLUDES [facility] Last Admin: 06/08/19 06:38 Dose: 20 mg Ondansetron HCl (Zofran) 4 mg IVPUSH ONETIME ONE Stop: 06/06/19 04:38 Last Admin: 06/06/19 04:52 Dose: 4 mg Ondansetron HCl (Zofran) 4 mg IVPUSH Q6H PRN PRN Reason: Nausea/Vomiting Last Admin: 06/06/19 09:36 Dose: 4 mg Ondansetron HCl (Zofran) Confirm Administered Dose 4 mg .ROUTE .STK-MED ONE Stop: 06/07/19 09:50 Oxycodone/Acetaminophen (Percocet 325-5 Mg) 2 tab PO Q4H PRN PRN Reason: Pain (moderate 4-6) Last Admin: 06/06/19 10:41 Dose: 2 tab Phenylephrine HCl (Hugh-Synephrine) Confirm Administered Dose 10 mg .ROUTE .STK- MED ONE Stop: 06/07/19 09:45 Phenylephrine HCl (Phenylephrine In Ns 100 Mcg/Ml) Confirm Administered Dose 2 mg .ROUTE .STK-MED ONE Stop: 06/07/19 09:50 Propofol (Diprivan 20 Ml) Confirm Administered Dose 200 mg .ROUTE .STK-MED ONE Stop: 06/07/19 09:48 Rocuronium Badger (Zemuron) Confirm Administered Dose 100 mg .ROUTE .STK-MED ONE Stop: 06/07/19 09:50 Succinylcholine Chloride (Succinylcholine Chloride) Confirm Administered Dose 200 mg .ROUTE .STK-MED ONE Stop: 06/07/19 09:50 Sugammadex Sodium (Bridion) Confirm Administered Dose 200 mg .ROUTE .STK-MED ONE Stop: 06/07/19 09:22 - Exam General: Reports: Alert, Oriented, Cooperative HEENT: Reports: Pupils Equal, Pupils Reactive Neck: Reports: Supple Lungs: Reports: Clear to Auscultation, Normal Respiratory Effort Cardiovascular: Reports: Regular Rate, Regular Rhythm GI/Abdominal Exam: Soft, Non-Tender, No Distention, No Mass
== END 2019-06-09 18:55 | disposition home or self-care (01) | DRG 263 ==
LOC: MW.ED 04:14 → MW.MS 06:16 → OBSVTOIN 06:16 → MW.ICU 06-07 11:57 → MW.MS 06-08 13:00
PROVIDERS: ADMIT Surgery; ATTEND Surgery
PROC: 0FT40ZZ Resection of Gallbladder, Open Approach (ICD-10-PCS; principal; 2019-06-06)
DX: K80.00 Calculus of gallbladder with acute cholecystitis without obstruction (principal); K82.A1 Gangrene of gallbladder in cholecystitis; I10 Essential (primary) hypertension
CPT/HCPCS: 36415; 74177; 74177-26; 74181; 74181-26; 76705; 76705-26; 80053; 82150; 83605; 83690; 83735; 85025; 85027; 93005; 96365; 96375; 99285-25; A9270-GY; C9113; J0330; J0690; J1170; J1885; J2001; J2250; J2270; J2274; J2370; J2405; J2543; J2704; J3010; J3490; J7030; J7050; J7120; Q9967